=== PATIENT | male | born 1945 | race Caucasian/White ===

== ENCOUNTER 2018-05-13 12:41 | Emergency (ER) | payer MEDICARE, MEDICAID ==
[~2018-05-13] VITALS: Ht 167.6 cm; Wt 73.5 kg
[~2018-05-13 12:41] MED LIST: BUSP15TA3 PO; CILO100T PO; FAMO40TA7 PO; LISI-600 PO; OXYC20TA71 PO
[2018-05-13] MEDS ORDERED: normal saline 1000ML IV soln IV ONE (12:50)
[2018-05-13 13:15] LABS: BASOPHILS % (AUTO) 0.5 % (0-1); EOSINOPHILS # (AUTO) 0.2 X10'3 (0-0.9); HEMATOCRIT 41.8 % (42.0-52.0); HEMOGLOBIN 14.3 g/dl (14.0-17.9); LYMPHOCYTES # (AUTO) 1.2 X10'3 (1.1-4.8); LYMPHOCYTES % (AUTO) 19.1 % (21-51); MEAN CORPUSCULAR HEMOGLOBIN 31.5 PG (27.0-31.0); MEAN CORPUSCULAR HGB CONC 34.2 % (33.0-36.5); MEAN CORPUSCULAR VOLUME 92.3 FL (78-98); MEAN PLATELET VOLUME 9.4 FL (7.4-10.4); MONOCYTES # (AUTO) 0.3 X10'3 (0-0.9); MONOCYTES % (AUTO) 5.4 % (2-12); NEUTROPHILS # (AUTO) 4.6 X10'3 (1.8-7.7); PLATELET COUNT 184 X10'3 (140-440); RED BLOOD COUNT 4.53 X10'6 (4.70-6.10); RED CELL DISTRIBUTION WIDTH 12.4 % (11.5-14.5); WHITE BLOOD COUNT 6.3 X10'3 (4.5-11.0)
[2018-05-13 13:26] LABS: ALANINE AMINOTRANSFERASE 23 U/L (12-78); ALBUMIN 3.3 G/DL (3.4-5.0); ALKALINE PHOSPHATASE 74 IU/L (46-116); ANION GAP 10 (8-16); ASPARTATE AMINO TRANSFERASE 18 U/L (10-37); BILIRUBIN,TOTAL 0.4 MG/DL (0.1-1.0); BLOOD UREA NITROGEN 21 MG/DL (7-18); BUN/CREATININE RATIO 19.6 (5.4-32.0); CHLORIDE 103 MMOL/L (99-107); CREATININE 1.07 MG/DL (0.60-1.10); GLUCOSE 182 MG/DL (70-104); POTASSIUM 3.6 MMOL/L (3.5-5.1); SODIUM 137 MMOL/L (135-145); TOTAL CARBON DIOXIDE 24.4 MMOL/L (24-32); TOTAL PROTEIN 6.7 G/DL (6.4-8.2); eGFR 68 ML/MIN
[2018-05-13 14:03] VITALS: BP 195/80
== END 2018-05-13 14:04 | disposition home or self-care (01) ==
LOC: ER 12:42
DX: T40.1X1A Poisoning by heroin, accidental (unintentional), initial encounter (principal); I10 Essential (primary) hypertension; J44.9 Chronic obstructive pulmonary disease, unspecified; F17.200 Nicotine dependence, unspecified, uncomplicated; F15.90 Other stimulant use, unspecified, uncomplicated; Y92.89 Other specified places as the place of occurrence of the external cause
CPT/HCPCS: 36415; 80053; 85025; 93005; 96360; 99285; J7030

== ENCOUNTER 2019-04-12 12:16 | Emergency (ER) | payer MEDICARE, MEDICAID ==
[~2019-04-12] VITALS: Ht 167.6 cm; Wt 66.4 kg
[2019-04-12] MEDS ORDERED: normal saline 1000ML IV soln IVB ONE ×2 (12:25→13:15)
[2019-04-12 13:07] LABS: BASOPHILS % (AUTO) 0.6 % (0-1); EOSINOPHILS # (AUTO) 0.2 X10'3 (0-0.9); HEMATOCRIT 41.3 % (42.0-52.0); HEMOGLOBIN 13.8 g/dl (14.0-17.9); LYMPHOCYTES # (AUTO) 1.6 X10'3 (1.1-4.8); LYMPHOCYTES % (AUTO) 21.7 % (21-51); MEAN CORPUSCULAR HEMOGLOBIN 29.9 PG (27.0-31.0); MEAN CORPUSCULAR HGB CONC 33.4 g/dL (33.0-36.5); MEAN CORPUSCULAR VOLUME 89.5 FL (78-98); MEAN PLATELET VOLUME 8.9 FL (7.4-10.4); MONOCYTES # (AUTO) 0.7 X10'3 (0-0.9); MONOCYTES % (AUTO) 9.1 % (2-12); NEUTROPHILS # (AUTO) 4.7 X10'3 (1.8-7.7); NEUTROPHILS % (AUTO) 65.6 % (42-75); PLATELET COUNT 239 X10'3 (140-440); RED BLOOD COUNT 4.61 X10'6 (4.70-6.10); RED CELL DISTRIBUTION WIDTH 15.4 % (11.5-14.5); WHITE BLOOD COUNT 7.2 X10'3 (4.5-11.0)
--- NOTE | 2019-04-12 13:16 | NUR ---
REMOVE PTS CLOTHES AND PLACE PT IN GOWN. PT TAKEN TO CT VIA GURNEY BY MINGO.
[2019-04-12 13:21] LABS: ALANINE AMINOTRANSFERASE 30 U/L (12-78); ALBUMIN 3.6 G/DL (3.4-5.0); ALBUMIN/GLOBULIN RATIO 0.9 (1.1-1.5); ALKALINE PHOSPHATASE 85 IU/L (46-116); ANION GAP 10 (8-16); ASPARTATE AMINO TRANSFERASE 20 U/L (10-37); BILIRUBIN,TOTAL 0.9 MG/DL (0.1-1.0); BLOOD UREA NITROGEN 18 MG/DL (7-18); CALCIUM 9.2 MG/DL (8.5-10.1); CHLORIDE 107 MMOL/L (99-107); GLUCOSE 86 MG/DL (70-104); POTASSIUM 3.4 MMOL/L (3.5-5.1); SODIUM 142 MMOL/L (135-145); TOTAL PROTEIN 7.6 G/DL (6.4-8.2); eGFR 82 ML/MIN
[2019-04-12 13:24] LABS: TROPONIN I < 0.04 NG/ML (0.0-0.05)
[2019-04-12 13:39] LABS: ETHANOL < 0.010 GM/DL (0.0-0.010)
[2019-04-12 13:57] VITALS: BP 152/80
[2019-04-12 14:08] LABS: CLARITY,URINE CLEAR (Clear); COLOR,URINE YELLOW (Yellow); GLUCOSE, URINE NEGATIVE (Neg); KETONES,URINE 15 mg/dl (Neg); LEUKOCYTE ESTERASE ,URINE NEGATIVE (Neg); NITRITES, URINE NEGATIVE (Neg); OCCULT BLOOD,URINE LARGE (Neg); PH,URINE 5.5 (4.8-8.0); PROTEIN,URINE TRACE mg/dl (Neg)
[2019-04-12 14:14] LABS: URINE AMPHETAMINE SCREEN POSITIVE (Neg); URINE BARBITUATE SCREEN NEGATIVE (Neg); URINE BENZODIAZEPINES SCREEN POSITIVE (Neg); URINE CANNABINOID SCREEN POSITIVE (Neg); URINE COCAINE SCREEN NEGATIVE (Neg); URINE METHADONE SCREEN NEGATIVE (Neg); URINE OPIATE SCREEN POSITIVE (Neg); URINE PHENCYCLIDINE SCREEN NEGATIVE (Neg)
[2019-04-12 14:20] LABS: UA COLLECTION TYPE STRAIGHT CATH
[2019-04-12 14:21] LABS: WBC,URINE 0-4 /HPF (0-4)
[2019-04-12 14:22] LABS: BACTERIA,URINE NONE SEEN /HPF (Neg); MUCUS STRANDS FEW /LPF (Neg); RBC,URINE 20-50 /HPF (0-2); SQUAMOUS EPITHELIAL CELL,UR FEW /LPF (FEW)
--- NOTE | 2019-04-12 14:45 | NUR ---
called [facility] [phone], per domenic pt ok to go to the [facility], carlos howe tech getting pt sack lunch from dietary, pt wearing appropriate clothes
--- NOTE | 2019-04-12 14:58 | NUR ---
BS 79, PT BEING GIVEN A SACK LUNCH. REMOVE TWO NEEDLES FROM PT'S RIGHT LEG. NOTIFY DR JIMENEZ.
== END 2019-04-12 16:03 | disposition home or self-care (01) ==
LOC: ER 12:17
DX: R41.82 Altered mental status, unspecified (principal); F19.10 Other psychoactive substance abuse, uncomplicated; I10 Essential (primary) hypertension; J44.9 Chronic obstructive pulmonary disease, unspecified; F41.9 Anxiety disorder, unspecified; F15.90 Other stimulant use, unspecified, uncomplicated; F11.90 Opioid use, unspecified, uncomplicated; F10.99 Alcohol use, unspecified with unspecified alcohol-induced disorder; Z86.19 Personal history of other infectious and parasitic diseases; Z98.890 Other specified postprocedural states; Y90.9 Presence of alcohol in blood, level not specified
CPT/HCPCS: 36415; 70450; 71045; 80053; 80305; 80320; 81001; 82140; 82948; 84484; 85025; 93005; 96360; 96361; 99284; J7030; P9612

== ENCOUNTER 2019-05-20 15:47 | Emergency (ER) | payer MEDICARE, MEDICAID ==
[~2019-05-20] VITALS: Ht 167.6 cm; Wt 72.7 kg
[~2019-05-20 15:47] MED LIST changes: +LIDOcaine 1% W/epiNEPHrine 1:100,000 20ml vial ONE
[2019-05-20 16:11] VITALS: BP 108/66
== END 2019-05-20 19:49 | disposition home or self-care (01) ==
LOC: ER 15:48
DX: S01.111A Laceration without foreign body of right eyelid and periocular area, initial encounter (principal); S60.311A Abrasion of right thumb, initial encounter; M54.2 Cervicalgia; I10 Essential (primary) hypertension; J44.9 Chronic obstructive pulmonary disease, unspecified; F41.9 Anxiety disorder, unspecified; F15.90 Other stimulant use, unspecified, uncomplicated; F11.90 Opioid use, unspecified, uncomplicated; Z98.890 Other specified postprocedural states; Z79.899 Other long term (current) drug therapy; W18.39XA Other fall on same level, initial encounter; Y93.89 Activity, other specified; Y92.89 Other specified places as the place of occurrence of the external cause; Y99.8 Other external cause status
CPT/HCPCS: 12013; 70450; 72125; 73120; 99284

== ENCOUNTER 2019-07-01 14:13 | Inpatient (IN) | payer MEDICARE, MEDICAID ==
[~2019-07-01] VITALS: Ht 167.6 cm; Wt 68.0 kg
[~2019-07-01 14:13] MED LIST changes: -LIDOcaine 1% W/epiNEPHrine 1:100,000 20ml vial ONE
[2019-07-01] MEDS ORDERED: normal saline 1000ML IV soln IVB ONE (14:45)
[2019-07-01 15:26] LABS: BASOPHILS # (AUTO) 0.1 X10'3 (0-0.2); BASOPHILS % (AUTO) 1.5 % (0-1); EOSINOPHILS # (AUTO) 0.3 X10'3 (0-0.9); EOSINOPHILS % (AUTO) 4.1 % (0-6); HEMATOCRIT 43.1 % (42.0-52.0); HEMOGLOBIN 14.5 g/dl (14.0-17.9); LYMPHOCYTES # (AUTO) 3.2 X10'3 (1.1-4.8); LYMPHOCYTES % (AUTO) 41.9 % (21-51); MEAN CORPUSCULAR HEMOGLOBIN 30.3 PG (27.0-31.0); MEAN CORPUSCULAR HGB CONC 33.7 g/dL (33.0-36.5); MEAN CORPUSCULAR VOLUME 89.8 FL (78-98); MEAN PLATELET VOLUME 9.6 FL (7.4-10.4); MONOCYTES % (AUTO) 12.4 % (2-12); NEUTROPHILS # (AUTO) 3.1 X10'3 (1.8-7.7); NEUTROPHILS % (AUTO) 40.1 % (42-75); PLATELET COUNT 154 X10'3 (140-440); RED BLOOD COUNT 4.79 X10'6 (4.70-6.10); RED CELL DISTRIBUTION WIDTH 14.5 % (11.5-14.5); WHITE BLOOD COUNT 7.6 X10'3 (4.5-11.0)
--- NOTE | 2019-07-01 15:35 | NUR ---
PT OUT TO CT VIA WHEELCHAIR WITH FEATHER CURLING MACHINE OPERATOR
[2019-07-01 15:54] LABS: ALBUMIN 2.9 G/DL (3.4-5.0); ALKALINE PHOSPHATASE 320 IU/L (46-116); ANION GAP 9 (8-16); ASPARTATE AMINO TRANSFERASE 809 U/L (10-37); BILIRUBIN,TOTAL 3.9 MG/DL (0.1-1.0); BLOOD UREA NITROGEN 13 MG/DL (7-18); BUN/CREATININE RATIO 15.7 (5.4-32.0); CALCIUM 8.9 MG/DL (8.5-10.1); CHLORIDE 107 MMOL/L (99-107); CREATININE 0.83 MG/DL (0.60-1.10); ETHANOL < 0.010 GM/DL (0.0-0.010); GLUCOSE 114 MG/DL (70-104); SODIUM 143 MMOL/L (135-145); TOTAL CARBON DIOXIDE 26.8 MMOL/L (24-32); TROPONIN I < 0.04 NG/ML (0.0-0.05); eGFR 90 ML/MIN
[2019-07-01 15:55] LABS: ALANINE AMINOTRANSFERASE 2040 U/L (12-78); ALBUMIN/GLOBULIN RATIO 0.8 (1.1-1.5); TOTAL PROTEIN 6.7 G/DL (6.4-8.2)
[2019-07-01] MEDS ORDERED: lactulose 20gm/30ml cup PO ONE (16:10)
[2019-07-01] MEDS ORDERED: NO HOME MEDS (16:12)
[2019-07-01 16:28] LABS: CLARITY,URINE CLEAR (Clear); COLOR,URINE YELLOW (Yellow); GLUCOSE, URINE NEGATIVE (Neg); KETONES,URINE NEGATIVE (Neg); LEUKOCYTE ESTERASE ,URINE NEGATIVE (Neg); NITRITES, URINE NEGATIVE (Neg); OCCULT BLOOD,URINE SMALL (Neg); PROTEIN,URINE NEGATIVE (Neg); UROBILINOGEN,URINE 0.2 E.U/dL (0.2-1.0)
[2019-07-01 16:33] LABS: UA COLLECTION TYPE URINAL
[2019-07-01 16:35] LABS: BACTERIA,URINE NONE SEEN /HPF (Neg); MUCUS STRANDS NONE SEEN /LPF (Neg); RBC,URINE 0-2 /HPF (0-2); SQUAMOUS EPITHELIAL CELL,UR NONE SEEN /LPF (FEW); WBC,URINE NONE SEEN /HPF (0-4)
[2019-07-01 16:36] LABS: URINE AMPHETAMINE SCREEN NEGATIVE (Neg); URINE BARBITUATE SCREEN NEGATIVE (Neg); URINE BENZODIAZEPINES SCREEN NEGATIVE (Neg); URINE CANNABINOID SCREEN NEGATIVE (Neg); URINE COCAINE SCREEN NEGATIVE (Neg); URINE METHADONE SCREEN NEGATIVE (Neg); URINE OPIATE SCREEN NEGATIVE (Neg); URINE PHENCYCLIDINE SCREEN NEGATIVE (Neg)
[2019-07-01] MEDS: normal saline 1000ml 1,000 ML IV SCH (16:36)
[2019-07-01] MEDS ORDERED: magnesium 2GM in 50ml NS 50 ML IV PRN (16:40)
[2019-07-01] MEDS ORDERED: magnesium Cl slow-release 64mg tablet PO PRN (16:40)
[2019-07-01] MEDS ORDERED: magnesium 4gm in 100ml NS 100 ML IV PRN (16:40)
[2019-07-01] MEDS ORDERED: diphenhydrAMINE 25mg capsule PO PRN (16:40)
[2019-07-01 17:37] LABS: ACETAMINOPHEN < 2.0 UG/ML (10-30)
--- NOTE | 2019-07-01 18:03 | NUR ---
Patient in room PCU 3024. I have received report from Lolly and had the opportunity to ask questions and assume patient care, obtained a set of vital signs, 2 RN skin check completed. 20g to RFA running NS @ 100 mL/HR. Oriented patient to new unit. Will report off to night shit.
[2019-07-01 18:07] VITALS: BP 133/78
--- NOTE | 2019-07-01 18:21 | NUR ---
Problems reprioritized. Patient report given, questions answered & plan of care reviewed with Tay.
--- NOTE | 2019-07-01 18:21 | NUR ---
Patient in room PCU 3026R. I have received report from KARMEN Lovett and had the opportunity to ask questions and assume patient care. Pt is alert and oriented x4, denies CP, SOB, dizziness, n/v, and rated pain 0/10
[2019-07-01 18:45] VITALS: BP 117/62
[2019-07-01 20:47] LABS: BILIRUBIN,DIRECT 2.8 MG/DL (0-0.3)
[2019-07-01 22:00] VITALS: BP 126/63
[2019-07-02] MEDS: normal saline 1000ml 1,000 ML IV SCH ×3 (02:42→17:49)
[2019-07-02 03:00] VITALS: BP 137/67
[2019-07-02 05:16] LABS: BASOPHILS # (AUTO) 0.1 X10'3 (0-0.2); BASOPHILS % (AUTO) 0.9 % (0-1); EOSINOPHILS # (AUTO) 0.4 X10'3 (0-0.9); EOSINOPHILS % (AUTO) 6.2 % (0-6); HEMATOCRIT 39.6 % (42.0-52.0); HEMOGLOBIN 13.5 g/dl (14.0-17.9); LYMPHOCYTES # (AUTO) 2.7 X10'3 (1.1-4.8); LYMPHOCYTES % (AUTO) 44.8 % (21-51); MEAN CORPUSCULAR HEMOGLOBIN 30.4 PG (27.0-31.0); MEAN CORPUSCULAR VOLUME 89.2 FL (78-98); MEAN PLATELET VOLUME 9.8 FL (7.4-10.4); MONOCYTES # (AUTO) 0.8 X10'3 (0-0.9); MONOCYTES % (AUTO) 13.9 % (2-12); NEUTROPHILS % (AUTO) 34.2 % (42-75); PLATELET COUNT 140 X10'3 (140-440); RED BLOOD COUNT 4.44 X10'6 (4.70-6.10); RED CELL DISTRIBUTION WIDTH 14.8 % (11.5-14.5)
[2019-07-02 05:26] LABS: ALBUMIN 2.5 G/DL (3.4-5.0); ANION GAP 11 (8-16); BLOOD UREA NITROGEN 10 MG/DL (7-18); BUN/CREATININE RATIO 12.7 (5.4-32.0); CALCIUM 8.3 MG/DL (8.5-10.1); CHLORIDE 110 MMOL/L (99-107); CHOLESTEROL 120 MG/DL (0-200); CREATININE 0.79 MG/DL (0.60-1.10); GLUCOSE 95 MG/DL (70-104); HDL CHOLESTEROL 15 MG/DL (35-60); LDL CHOLESTEROL 72 MG/DL (50-100); MAGNESIUM 1.7 MG/DL (1.5-2.4); POTASSIUM 3.7 MMOL/L (3.5-5.1); SODIUM 144 MMOL/L (135-145); TRIGLYCERIDES 145 MG/DL (20-135); eGFR > 90 ML/MIN
--- NOTE | 2019-07-02 06:29 | NUR ---
Patient in room PCU 3024. I have received report from Tay PERAZA and had the opportunity to ask questions and assume patient care.
--- NOTE | 2019-07-02 06:32 | NUR ---
Problems reprioritized. Patient report given, questions answered & plan of care reviewed with KARMEN Long. Pt stable at shift change
[2019-07-02 07:00] VITALS: BP 130/55
[2019-07-02 08:18] LABS: ALBUMIN/GLOBULIN RATIO 0.7 (1.1-1.5); ALKALINE PHOSPHATASE 271 IU/L (46-116); ASPARTATE AMINO TRANSFERASE 587 U/L (10-37); BILIRUBIN,TOTAL 2.9 MG/DL (0.1-1.0); TOTAL PROTEIN 5.9 G/DL (6.4-8.2)
[2019-07-02 08:21] LABS: ALANINE AMINOTRANSFERASE 1573 U/L (12-78)
[2019-07-02 11:00] VITALS: BP 148/70
--- NOTE | 2019-07-02 12:40 | NUR ---
Spoke with sister Sara on the phone after getting permision from the patient. Sister said the last place he stayed was with someone named Shola at [phone]. She said he cannot come to her home at this time and is hoping that secondary social studies teacher can help him find a place to stay.
[2019-07-02 15:00] VITALS: BP 116/91
--- NOTE | 2019-07-02 18:08 | NUR ---
Problems reprioritized. Patient report given, questions answered & plan of care reviewed with Tay PERAZA.
[2019-07-02 19:00] VITALS: BP 117/53
[2019-07-02 23:00] VITALS: BP 128/65
[2019-07-03] MEDS: normal saline 1000ml 1,000 ML IV SCH (02:41)
[2019-07-03 03:00] VITALS: BP 140/66
--- NOTE | 2019-07-03 03:01 | NUR ---
PAGER ID: [phone] MESSAGE: Leann Venegas; Room # 0216G Pt pulled IV, refused treatment, and wants to leave. Aisha- Tay
--- NOTE | 2019-07-03 03:05 | NUR ---
Patient refused to sign the AMA, but wants to stay now without a new IV. Patient is being administered NS @ 100ml. Per Dr. Ram , patient can stay w/o IV, but a decision has to be made tomorrow morning.
--- NOTE | 2019-07-03 05:02 | NUR ---
Patient refused morning labs
[2019-07-03 06:00] VITALS: BP 139/61
--- NOTE | 2019-07-03 06:29 | NUR ---
Problems reprioritized. Patient report given, questions answered & plan of care reviewed with KARMEN Mcgrath. Pt stable at shift change, but non-compliant
--- NOTE | 2019-07-03 08:05 | NUR ---
PAGER ID: [phone] MESSAGE: [id number] Mike Venegas is leaving THEODORE Mcgrath RN Ext [phone]
--- NOTE | 2019-07-03 08:12 | NUR ---
Explained to patient he is not medically clear to leave without going AMA, patient states he still wants to leave.
[2019-07-04 07:17] LABS: HBSAG SCREEN Negative (Negative); HEP A AB, IGM Negative (Negative); HEP B CORE AB, IGM Negative (Negative); HEPATITIS C ANTIBODY >11.0 s/co ratio (0.0-0.9)
== END 2019-07-03 07:45 | disposition left against medical advice (07) | DRG 441 ==
LOC: ER 14:13 → ED HOLD 16:36 → PCU 3S 17:50
PROVIDERS: ADMIT Internal Medicine; ATTEND Internal Medicine
DX: B17.9 Acute viral hepatitis, unspecified (principal); K72.00 Acute and subacute hepatic failure without coma; G93.41 Metabolic encephalopathy; K70.30 Alcoholic cirrhosis of liver without ascites; B18.2 Chronic viral hepatitis C; F10.10 Alcohol abuse, uncomplicated; F17.210 Nicotine dependence, cigarettes, uncomplicated; Z53.29 Procedure and treatment not carried out because of patient's decision for other reasons; F11.90 Opioid use, unspecified, uncomplicated; F15.90 Other stimulant use, unspecified, uncomplicated; F41.9 Anxiety disorder, unspecified; R55 Syncope and collapse; I10 Essential (primary) hypertension; J44.9 Chronic obstructive pulmonary disease, unspecified; Z59.0 Homelessness; Z89.511 Acquired absence of right leg below knee; Z71.51 Drug abuse counseling and surveillance of drug abuser
CPT/HCPCS: 36415; 70450; 71045; 76700; 80048; 80053; 80061; 80076; 80305; 80320; 80329; 81001; 82140; 82248; 83735; 84484; 85025; 85610; 86705; 86706; 86709; 86803; 87081; 87340; 93005; 96360; 99285; G0378; J7030; Q0163

== ENCOUNTER 2019-10-23 16:26 | Inpatient (IN) | payer MEDICARE, MEDICAID ==
[~2019-10-23] VITALS: Ht 167.6 cm; Wt 71.4 kg
[~2019-10-23 16:26] MED LIST changes: -BUSP15TA3 PO; -CILO100T PO; -FAMO40TA7 PO; -LISI-600 PO; +NO HOME MEDS; -OXYC20TA71 PO
[2019-10-23] MEDS ORDERED: normal saline 1000ML IV soln IVB ONE (16:30)
[2019-10-23] MEDS ORDERED: normal saline 1000ml 1,000 ML IV ONE (16:35)
[2019-10-23] MEDS ORDERED: bacitracin 15gm ointment TP ONE (16:50)
[2019-10-23] MEDS ORDERED: TETanus/Pertussis (Acell)/Diphther VAC/PF (Tdap-Adult) 0.5ml syringe IMVAC ONE (16:50)
[2019-10-23] MEDS ORDERED: LORazepam 2 mg/ml vial IV ONE ×3 (16:50→21:00)
[2019-10-23 17:01] LABS: BASOPHILS % (AUTO) 0.4 % (0-1); EOSINOPHILS # (AUTO) 0.3 X10'3 (0-0.9); EOSINOPHILS % (AUTO) 3.5 % (0-6); HEMATOCRIT 42.2 % (42.0-52.0); HEMOGLOBIN 14.3 g/dl (14.0-17.9); LYMPHOCYTES # (AUTO) 2.9 X10'3 (1.1-4.8); LYMPHOCYTES % (AUTO) 38.9 % (21-51); MEAN CORPUSCULAR HEMOGLOBIN 30.6 PG (27.0-31.0); MEAN CORPUSCULAR VOLUME 89.9 FL (78-98); MEAN PLATELET VOLUME 8.6 FL (7.4-10.4); MONOCYTES # (AUTO) 0.7 X10'3 (0-0.9); MONOCYTES % (AUTO) 9.5 % (2-12); NEUTROPHILS # (AUTO) 3.6 X10'3 (1.8-7.7); NEUTROPHILS % (AUTO) 47.7 % (42-75); PLATELET COUNT 193 X10'3 (140-440); RED BLOOD COUNT 4.69 X10'6 (4.70-6.10); RED CELL DISTRIBUTION WIDTH 13.1 % (11.5-14.5); WHITE BLOOD COUNT 7.5 X10'3 (4.5-11.0)
[2019-10-23 17:08] LABS: CLARITY,URINE CLEAR (Clear); COLOR,URINE YELLOW (Yellow); GLUCOSE, URINE NEGATIVE (Neg); KETONES,URINE NEGATIVE (Neg); LEUKOCYTE ESTERASE ,URINE NEGATIVE (Neg); NITRITES, URINE NEGATIVE (Neg); OCCULT BLOOD,URINE TRACE-INTACT (Neg); PROTEIN,URINE NEGATIVE (Neg); UROBILINOGEN,URINE 0.2 E.U/dL (0.2-1.0)
[2019-10-23 17:16] LABS: UA COLLECTION TYPE CLN CATCH MIDSTREAM
[2019-10-23 17:17] LABS: BACTERIA,URINE NONE SEEN /HPF (Neg); MUCUS STRANDS NONE SEEN /LPF (Neg); RBC,URINE 0-2 /HPF (0-2); SQUAMOUS EPITHELIAL CELL,UR NONE SEEN /LPF (FEW); WBC,URINE NONE SEEN /HPF (0-4)
[2019-10-23 17:19] LABS: ALANINE AMINOTRANSFERASE 25 U/L (12-78); ALBUMIN 3.6 G/DL (3.4-5.0); ALBUMIN/GLOBULIN RATIO 1.1 (1.1-1.5); ALKALINE PHOSPHATASE 70 IU/L (46-116); ANION GAP 9 (8-16); ASPARTATE AMINO TRANSFERASE 19 U/L (10-37); BILIRUBIN,TOTAL 0.3 MG/DL (0.1-1.0); BLOOD UREA NITROGEN 17 MG/DL (7-18); BUN/CREATININE RATIO 17.2 (5.4-32.0); CALCIUM 8.5 MG/DL (8.5-10.1); CHLORIDE 109 MMOL/L (99-107); CREATININE 0.99 MG/DL (0.60-1.10); GLUCOSE 96 MG/DL (70-104); POTASSIUM 3.8 MMOL/L (3.5-5.1); SODIUM 142 MMOL/L (135-145); TOTAL CARBON DIOXIDE 24.1 MMOL/L (24-32); eGFR 74 ML/MIN
[2019-10-23 17:22] LABS: TROPONIN I < 0.04 NG/ML (0.0-0.05)
[2019-10-23 17:28] LABS: URINE AMPHETAMINE SCREEN NEGATIVE (Neg); URINE BARBITUATE SCREEN NEGATIVE (Neg); URINE BENZODIAZEPINES SCREEN NEGATIVE (Neg); URINE CANNABINOID SCREEN POSITIVE (Neg); URINE COCAINE SCREEN NEGATIVE (Neg); URINE METHADONE SCREEN NEGATIVE (Neg); URINE OPIATE SCREEN NEGATIVE (Neg); URINE PHENCYCLIDINE SCREEN NEGATIVE (Neg)
[2019-10-23] MEDS ORDERED: LIDOcaine/epinephrine/tetracaine TOPICAL sol 3 ML syringe TOP ONE (18:00)
--- NOTE | 2019-10-23 18:59 | NUR ---
The patient is constantly trying to get out of bed and not able to follow instructions. He does have an elevated alcohol level in his blood. We have tried to talk to him, to instruct him, a sitter was in the room. It has become dangerous for his safety and there is such a great concern about him getting hurt r/t this activity and lack of comprehension. The MD was made aware and restraints were placed. Initially we tried the soft foam restraints, however, he busted those so now the hard restraints were placed on his wrists.
[2019-10-23] MEDS ORDERED: diphenhydrAMINE 50 mg/ml inj IV ONE (19:00)
[2019-10-23] MEDS ORDERED: haloperidol lactate 5mg/ml inj IM ONE (19:00)
[2019-10-23] MEDS ORDERED: chlordiazePOXIDE 25mg capsule PO ONE (19:00)
--- NOTE | 2019-10-23 21:40 | NUR ---
pt is being placed into soft restraints and see if these work. aware.
[2019-10-24] VITALS (17 sets, daily range): BP systolic 108–165; BP diastolic 42–87
[2019-10-24] MEDS ORDERED: sodium phosphate inj. 15 MMOL in dextrose 5%-water 250 ML IV PRN (00:50)
[2019-10-24] MEDS ORDERED: sodium phosphate inj. 30 MMOL in dextrose 5%-water 250 ML IV PRN (00:50)
[2019-10-24] MEDS ORDERED: magnesium Cl slow-release 64mg tablet PO PRN (00:50)
[2019-10-24] MEDS ORDERED: ondansetron/PF 4mg/2ml inj IV PRN (00:50)
[2019-10-24] MEDS ORDERED: thiamine inj. 100 MG in normal saline 100ml IV soln 100 ML IV ONE (00:50)
[2019-10-24] MEDS ORDERED: potassium Cl 20 mEq SR tablet PO PRN ×2 (00:50)
[2019-10-24] MEDS ORDERED: potassium CL 10mEq/100ml bag 100 ML IV PRN (00:50)
[2019-10-24] MEDS ORDERED: magnesium 2GM in 50ml NS 50 ML IV PRN (00:50)
[2019-10-24] MEDS ORDERED: haloperidol 5mg tablet PO PRN (00:50)
[2019-10-24] MEDS ORDERED: Neutra Phos packet PO PRN (00:50)
[2019-10-24] MEDS ORDERED: acetaminophen 325mg tablet PO PRN ×2 (00:50)
[2019-10-24] MEDS ORDERED: magnesium hydroxide 30ml (MOM) UD suspension PO PRN (00:50)
[2019-10-24] MEDS ORDERED: haloperidol lactate 5mg/ml inj IM PRN (00:50)
[2019-10-24] MEDS ORDERED: magnesium 4gm in 100ml NS 100 ML IV PRN (00:50)
[2019-10-24] MEDS ORDERED: LORazepam 2 mg/ml vial IV PRN (00:50)
[2019-10-24] MEDS ORDERED: thiamine 100mg/ml 2ml inj. IV ONE (01:10)
[2019-10-24] MEDS: normal saline 1000ml 1,000 ML IV SCH ×2 (01:22→13:52)
[2019-10-24] MEDS: dexmedetomidin/NS 400mcg/100ml 100 ML IV SCH ×2 (03:15→14:10)
[2019-10-24 08:42] LABS: ALANINE AMINOTRANSFERASE 22 U/L (12-78); ALBUMIN 3.3 G/DL (3.4-5.0); ALBUMIN/GLOBULIN RATIO 0.9 (1.1-1.5); ALKALINE PHOSPHATASE 79 IU/L (46-116); AMYLASE 39 U/L (25-115); ANION GAP 7 (8-16); ASPARTATE AMINO TRANSFERASE 25 U/L (10-37); BILIRUBIN,TOTAL 0.5 MG/DL (0.1-1.0); BLOOD UREA NITROGEN 13 MG/DL (7-18); BUN/CREATININE RATIO 14.4 (5.4-32.0); CALCIUM 8.3 MG/DL (8.5-10.1); CHLORIDE 111 MMOL/L (99-107); GLUCOSE 88 MG/DL (70-104); LIPASE 54 U/L (73-393); MAGNESIUM 1.7 MG/DL (1.5-2.4); POTASSIUM 3.7 MMOL/L (3.5-5.1); SODIUM 146 MMOL/L (135-145); TOTAL CARBON DIOXIDE 28.1 MMOL/L (24-32); TOTAL PROTEIN 6.8 G/DL (6.4-8.2); eGFR 82 ML/MIN
[2019-10-24 09:21] LABS: BASOPHILS % (AUTO) 0.6 % (0-1); EOSINOPHILS # (AUTO) 0.3 X10'3 (0-0.9); EOSINOPHILS % (AUTO) 4.3 % (0-6); HEMATOCRIT 42.8 % (42.0-52.0); HEMOGLOBIN 14.8 g/dl (14.0-17.9); LYMPHOCYTES # (AUTO) 1.4 X10'3 (1.1-4.8); LYMPHOCYTES % (AUTO) 18.4 % (21-51); MEAN CORPUSCULAR HGB CONC 34.5 g/dL (33.0-36.5); MEAN CORPUSCULAR VOLUME 89.7 FL (78-98); MEAN PLATELET VOLUME 8.5 FL (7.4-10.4); MONOCYTES # (AUTO) 0.7 X10'3 (0-0.9); MONOCYTES % (AUTO) 8.7 % (2-12); NEUTROPHILS # (AUTO) 5.2 X10'3 (1.8-7.7); PLATELET COUNT 178 X10'3 (140-440); RED BLOOD COUNT 4.77 X10'6 (4.70-6.10); RED CELL DISTRIBUTION WIDTH 12.9 % (11.5-14.5); WHITE BLOOD COUNT 7.7 X10'3 (4.5-11.0)
[2019-10-24 09:32] LABS: PARTIAL THROMBOPLASTIN TIME 25 SECONDS (22-32)
[2019-10-24] MEDS: pantoprazole 40 MG vial IV SCH (09:34)
[2019-10-24] MEDS: enoxaparin 40mg/0.4ml syringe SUBCUT SCH (09:35)
--- NOTE | 2019-10-24 12:37 | NUR ---
Pt having what appears to be intermittent PVCs and [id number]. Dr. Bae, shipping track supervisor Annie Aguayo, and Ashley Almeida TOOL DESIGN DRAFTSPERSON made aware. No further intervention ordered.
[2019-10-24] MEDS: MVI, adult No.4 with vit. K 10 ML in dextrose 5% water 500ml 500 ML IV SCH ×2 (13:22)
[2019-10-24] MEDS: folic acid 1mg/0.2ml inj IV SCH (15:10)
--- NOTE | 2019-10-24 18:43 | NUR ---
Patient in room CICU 2006. I have received report from Ирина Rutherford RN and had the opportunity to ask questions and assume patient care.
[2019-10-24] MEDS: thiamine inj. 100 MG in normal saline 100ml IV soln 100 ML IV SCH (20:13)
[2019-10-25] VITALS (17 sets, daily range): BP systolic 102–153; BP diastolic 43–81
[2019-10-25] MEDS: normal saline 1000ml 1,000 ML IV SCH ×2 (03:28→16:48)
[2019-10-25 05:43] LABS: BASOPHILS % (AUTO) 0.5 % (0-1); EOSINOPHILS # (AUTO) 0.4 X10'3 (0-0.9); HEMATOCRIT 39.9 % (42.0-52.0); HEMOGLOBIN 13.7 g/dl (14.0-17.9); LYMPHOCYTES # (AUTO) 1.5 X10'3 (1.1-4.8); LYMPHOCYTES % (AUTO) 21.2 % (21-51); MEAN CORPUSCULAR HEMOGLOBIN 30.9 PG (27.0-31.0); MEAN CORPUSCULAR HGB CONC 34.3 g/dL (33.0-36.5); MEAN PLATELET VOLUME 9.1 FL (7.4-10.4); MONOCYTES # (AUTO) 0.7 X10'3 (0-0.9); MONOCYTES % (AUTO) 9.7 % (2-12); NEUTROPHILS # (AUTO) 4.6 X10'3 (1.8-7.7); NEUTROPHILS % (AUTO) 63.6 % (42-75); PLATELET COUNT 163 X10'3 (140-440); RED BLOOD COUNT 4.43 X10'6 (4.70-6.10); RED CELL DISTRIBUTION WIDTH 13.1 % (11.5-14.5); WHITE BLOOD COUNT 7.2 X10'3 (4.5-11.0)
[2019-10-25 05:52] LABS: PARTIAL THROMBOPLASTIN TIME 26 SECONDS (22-32)
[2019-10-25 05:57] LABS: ALANINE AMINOTRANSFERASE 25 U/L (12-78); ALBUMIN 2.9 G/DL (3.4-5.0); ALBUMIN/GLOBULIN RATIO 0.9 (1.1-1.5); ALKALINE PHOSPHATASE 71 IU/L (46-116); AMYLASE 37 U/L (25-115); ANION GAP 6 (8-16); ASPARTATE AMINO TRANSFERASE 27 U/L (10-37); BILIRUBIN,TOTAL 0.6 MG/DL (0.1-1.0); BLOOD UREA NITROGEN 15 MG/DL (7-18); BUN/CREATININE RATIO 18.1 (5.4-32.0); CALCIUM 7.9 MG/DL (8.5-10.1); CHLORIDE 109 MMOL/L (99-107); CREATININE 0.83 MG/DL (0.60-1.10); GLUCOSE 86 MG/DL (70-104); LIPASE 62 U/L (73-393); MAGNESIUM 1.7 MG/DL (1.5-2.4); PHOSPHORUS 2.7 MG/DL (2.3-4.5); POTASSIUM 3.6 MMOL/L (3.5-5.1); SODIUM 141 MMOL/L (135-145); TOTAL PROTEIN 6.1 G/DL (6.4-8.2); eGFR 90 ML/MIN
--- NOTE | 2019-10-25 06:44 | NUR ---
Problems reprioritized. Patient report given, questions answered & plan of care reviewed with KARMEN Long.
--- NOTE | 2019-10-25 06:45 | NUR ---
Patient in room CICU 2006. I have received report from Ирина PERAZA and had the opportunity to ask questions and assume patient care. Patient resting in bed at this time, DNR band applied, patient offers no complaints, unlabored respirations, will continue to monitor.
[2019-10-25] MEDS: enoxaparin 40mg/0.4ml syringe SUBCUT SCH (07:41)
[2019-10-25] MEDS: pantoprazole 40 MG vial IV SCH (07:41)
--- NOTE | 2019-10-25 11:11 | NUR ---
PAGER ID: [phone] MESSAGE: DR. THIBODEAUX, [id number]/MILKA C/O CONSTIPATION. LAST BM 10-20. REQUESTING BOWEL CARE PLEASE.PROBABLY CAUSING THE ABD PAIN. PAOLA [phone] Addendum: 10/25/19 at 1111 by Vic Ortiz RN WRONG PATIENT. DISREGARD
[2019-10-25] MEDS: folic acid 1mg/0.2ml inj IV SCH (11:54)
[2019-10-25] MEDS: MVI, adult No.4 with vit. K 10 ML in dextrose 5% water 500ml 500 ML IV SCH ×2 (11:55)
--- NOTE | 2019-10-25 14:04 | NUR ---
RECEIVED REPORT VIA TELEPHONE FROM ANIA DAVENPORT RN
--- NOTE | 2019-10-25 14:41 | NUR ---
Problems reprioritized. Patient report given, questions answered & plan of care reviewed with Lars RN. Patient stable for transfer of care. Wheeled up on wheel chair, on telemetry, PIV intact and running, on RA with no issues, all belongings at bedside on PCU including scooter and prostetic leg.
--- NOTE | 2019-10-25 15:30 | NUR ---
RECEIVED FROM [facility] VIA . AGREE WITH PRIOR ASSESSMENT. VS STABLE.
--- NOTE | 2019-10-25 16:36 | NUR ---
REPORT GIVEN TO ANIA Piña, TO ASSUME CARE.
--- NOTE | 2019-10-25 18:34 | NUR ---
Problems reprioritized. Patient report given, questions answered & plan of care reviewed with KARMEN Walden.
--- NOTE | 2019-10-25 18:35 | NUR ---
Patient in room PCU 3027. I have received report from KARMEN Long and had the opportunity to ask questions and assume patient care.
[2019-10-25] MEDS ORDERED: GABA-532 PO (19:49)
[2019-10-25] MEDS: gabapentin 300mg capsule PO SCH (20:47)
[2019-10-25] MEDS: thiamine inj. 100 MG in normal saline 100ml IV soln 100 ML IV SCH (20:47)
[2019-10-26] MEDS ORDERED: LORazepam 1 MG tablet PO PRN (00:50)
[2019-10-26] MEDS ORDERED: LORazepam 2 mg/ml vial IV PRN (00:50)
[2019-10-26 02:00] VITALS: BP 141/64
[2019-10-26] MEDS: normal saline 1000ml 1,000 ML IV SCH (03:37)
[2019-10-26 05:47] LABS: ALANINE AMINOTRANSFERASE 32 U/L (12-78); ALBUMIN 2.9 G/DL (3.4-5.0); ALBUMIN/GLOBULIN RATIO 0.9 (1.1-1.5); ALKALINE PHOSPHATASE 73 IU/L (46-116); AMYLASE 36 U/L (25-115); ANION GAP 7 (8-16); ASPARTATE AMINO TRANSFERASE 29 U/L (10-37); BILIRUBIN,TOTAL 0.5 MG/DL (0.1-1.0); BLOOD UREA NITROGEN 9 MG/DL (7-18); BUN/CREATININE RATIO 10.1 (5.4-32.0); CALCIUM 7.9 MG/DL (8.5-10.1); CHLORIDE 109 MMOL/L (99-107); CREATININE 0.89 MG/DL (0.60-1.10); GLUCOSE 92 MG/DL (70-104); LIPASE 64 U/L (73-393); MAGNESIUM 1.7 MG/DL (1.5-2.4); PHOSPHORUS 2.9 MG/DL (2.3-4.5); POTASSIUM 3.7 MMOL/L (3.5-5.1); SODIUM 142 MMOL/L (135-145); TOTAL CARBON DIOXIDE 25.7 MMOL/L (24-32); eGFR 83 ML/MIN
[2019-10-26 05:56] LABS: BASOPHILS % (AUTO) 0.5 % (0-1); EOSINOPHILS # (AUTO) 0.4 X10'3 (0-0.9); EOSINOPHILS % (AUTO) 6.5 % (0-6); HEMATOCRIT 38.9 % (42.0-52.0); HEMOGLOBIN 13.4 g/dl (14.0-17.9); LYMPHOCYTES # (AUTO) 1.5 X10'3 (1.1-4.8); LYMPHOCYTES % (AUTO) 24.7 % (21-51); MEAN CORPUSCULAR HEMOGLOBIN 31.1 PG (27.0-31.0); MEAN CORPUSCULAR HGB CONC 34.5 g/dL (33.0-36.5); MEAN CORPUSCULAR VOLUME 90.3 FL (78-98); MEAN PLATELET VOLUME 8.9 FL (7.4-10.4); MONOCYTES # (AUTO) 0.7 X10'3 (0-0.9); MONOCYTES % (AUTO) 11.5 % (2-12); NEUTROPHILS # (AUTO) 3.4 X10'3 (1.8-7.7); NEUTROPHILS % (AUTO) 56.8 % (42-75); PLATELET COUNT 159 X10'3 (140-440); RED CELL DISTRIBUTION WIDTH 12.7 % (11.5-14.5)
[2019-10-26 06:00] VITALS: BP 128/64
--- NOTE | 2019-10-26 06:05 | NUR ---
Problems reprioritized. Patient report given, questions answered & plan of care reviewed with KARMEN Long.
[2019-10-26 06:11] LABS: PARTIAL THROMBOPLASTIN TIME 24 SECONDS (22-32)
[2019-10-26] MEDS: gabapentin 300mg capsule PO SCH (07:19)
[2019-10-26] MEDS: pantoprazole 40 MG vial IV SCH (07:19)
[2019-10-26] MEDS: enoxaparin 40mg/0.4ml syringe SUBCUT SCH (07:20)
[2019-10-26] MEDS ORDERED: multivitamins, therapeutics tablet PO SCH (08:00)
[2019-10-26] MEDS ORDERED: folic acid 1mg tablet PO SCH (08:00)
[2019-10-26] MEDS ORDERED: thiamine 100mg tablet PO SCH (08:00)
[2019-10-26] MEDS ORDERED: FOLI0.4T2 PO (10:35)
[2019-10-26] MEDS ORDERED: THIA50TA10 PO (10:35)
[2019-10-26] MEDS ORDERED: MULT-1179 PO (10:35)
--- NOTE | 2019-10-26 11:00 | NUR ---
Patient stable for discharge per MD order. patient discharge instructions given to patient, all questions and concerns addressed. New medications sent to [facility]. Patient declined follow up appointment. PIV d/c'd from left forearm, catheter intact. Tele monitor removed and retuned to telephone station installer. Patient wheel self off unit via motorized wheel chair.
--- NOTE | 2019-10-26 13:59 | NUR ---
Wound care consult received for wounds to face. Assessed prior to DC. Wounds stable with no signs of infection. Scabs forming over open areas. Recommend leaving open to air and pt can monitor from home.
[2019-10-28] MEDS ORDERED: LORazepam 1 MG tablet PO PRN (00:50)
[2019-10-28] MEDS ORDERED: LORazepam 2 mg/ml vial IV PRN (00:50)
== END 2019-10-26 11:00 | disposition home or self-care (01) | DRG 896 ==
LOC: ER 16:26 → ED HOLD 10-24 00:48 → CICU 2S 10-24 07:29 → PCU 3S 10-25 14:29
DX: F10.229 Alcohol dependence with intoxication, unspecified (principal); G93.41 Metabolic encephalopathy; F10.239 Alcohol dependence with withdrawal, unspecified; I10 Essential (primary) hypertension; J44.9 Chronic obstructive pulmonary disease, unspecified; S01.81XA Laceration without foreign body of other part of head, initial encounter; Z87.891 Personal history of nicotine dependence; Z89.511 Acquired absence of right leg below knee; B19.20 Unspecified viral hepatitis C without hepatic coma
CPT/HCPCS: 36415; 70450; 71045; 72125; 80053; 80305; 80320; 81001; 82140; 82150; 82948; 83605; 83690; 83735; 84100; 84145; 84484; 85025; 85610; 85730; 87040; 87081; 90715; 93005; 97161; 97530; C9113; G0378; J1200; J1630; J1650; J2060; J3411; J3490; J7030; J7060

== ENCOUNTER 2020-02-24 16:16 | Emergency (ER) | payer MEDICARE, MEDICAID ==
[~2020-02-24] VITALS: Ht 172.7 cm; Wt 77.3 kg
[~2020-02-24 16:16] MED LIST changes: +GABA-532 PO; +MULT-25 PO; -NO HOME MEDS; +THIA50TA10 PO
--- NOTE | 2020-02-24 16:34 | NUR ---
OFFICER LESLY IS HERE WITH PT.
[2020-02-24] MEDS ORDERED: normal saline 1000ML IV soln IVB ONE ×2 (16:50→18:00)
[2020-02-24] MEDS: cloNIDine 0.1 mg tablet PO STA ×2 (16:57→16:59)
[2020-02-24 17:40] LABS: BASOPHILS % (AUTO) 0.4 % (0-1); EOSINOPHILS # (AUTO) 0.2 X10'3 (0-0.9); EOSINOPHILS % (AUTO) 1.7 % (0-6); HEMATOCRIT 40.6 % (42.0-52.0); HEMOGLOBIN 13.4 g/dl (14.0-17.9); LYMPHOCYTES # (AUTO) 1.6 X10'3 (1.1-4.8); LYMPHOCYTES % (AUTO) 15.1 % (21-51); MEAN CORPUSCULAR HEMOGLOBIN 30.6 PG (27.0-31.0); MEAN CORPUSCULAR HGB CONC 33.1 g/dL (33.0-36.5); MEAN CORPUSCULAR VOLUME 92.4 FL (78-98); MEAN PLATELET VOLUME 8.6 FL (7.4-10.4); MONOCYTES # (AUTO) 1.1 X10'3 (0-0.9); MONOCYTES % (AUTO) 10.5 % (2-12); NEUTROPHILS # (AUTO) 7.9 X10'3 (1.8-7.7); NEUTROPHILS % (AUTO) 72.3 % (42-75); PLATELET COUNT 214 X10'3 (140-440); RED BLOOD COUNT 4.39 X10'6 (4.70-6.10); RED CELL DISTRIBUTION WIDTH 13.6 % (11.5-14.5); WHITE BLOOD COUNT 10.9 X10'3 (4.5-11.0)
[2020-02-24 18:03] LABS: ALANINE AMINOTRANSFERASE 26 U/L (12-78); ALBUMIN 3.4 G/DL (3.4-5.0); ALKALINE PHOSPHATASE 77 IU/L (46-116); ANION GAP 9 (8-16); ASPARTATE AMINO TRANSFERASE 20 U/L (10-37); BILIRUBIN,TOTAL 0.7 MG/DL (0.1-1.0); BLOOD UREA NITROGEN 23 MG/DL (7-18); BUN/CREATININE RATIO 20.2 (5.4-32.0); CALCIUM 8.4 MG/DL (8.5-10.1); CHLORIDE 108 MMOL/L (99-107); CREATININE 1.14 MG/DL (0.60-1.10); GLUCOSE 102 MG/DL (70-104); POTASSIUM 3.4 MMOL/L (3.5-5.1); SODIUM 142 MMOL/L (135-145); TOTAL PROTEIN 6.8 G/DL (6.4-8.2); eGFR 63 ML/MIN
--- NOTE | 2020-02-24 18:32 | NUR ---
PT IS MORE ALERT AND TALKING MORE. STATES HE IS FEELING BETTER.
[2020-02-24 19:15] VITALS: BP 167/94
== END 2020-02-24 19:15 | disposition home or self-care (01) ==
LOC: ER 16:16
DX: F10.129 Alcohol abuse with intoxication, unspecified (principal); F15.10 Other stimulant abuse, uncomplicated; I10 Essential (primary) hypertension; J44.9 Chronic obstructive pulmonary disease, unspecified; F41.9 Anxiety disorder, unspecified; F11.90 Opioid use, unspecified, uncomplicated; Z86.19 Personal history of other infectious and parasitic diseases; Z98.890 Other specified postprocedural states; Z72.89 Other problems related to lifestyle; Y90.9 Presence of alcohol in blood, level not specified
CPT/HCPCS: 36415; 80053; 83880; 84484; 85025; 85610; 93005; 99284; J7030

== ENCOUNTER 2020-10-18 08:09 | Day surgery (SDC) | payer MEDICARE, MEDICAID ==
[2020-10-11 12:26] LABS: BASOPHILS # (AUTO) 0.1 X10'3 (0-0.2); BASOPHILS % (AUTO) 0.6 % (0-1); EOSINOPHILS # (AUTO) 0.3 X10'3 (0-0.9); LYMPHOCYTES # (AUTO) 2.1 X10'3 (1.1-4.8); LYMPHOCYTES % (AUTO) 23.9 % (21-51); MEAN CORPUSCULAR HEMOGLOBIN 30.2 PG (27.0-31.0); MEAN CORPUSCULAR HGB CONC 33.3 g/dL (33.0-36.5); MEAN CORPUSCULAR VOLUME 90.6 FL (78-98); MEAN PLATELET VOLUME 8.3 FL (7.4-10.4); MONOCYTES # (AUTO) 0.8 X10'3 (0-0.9); MONOCYTES % (AUTO) 9.6 % (2-12); NEUTROPHILS # (AUTO) 5.5 X10'3 (1.8-7.7); NEUTROPHILS % (AUTO) 62.9 % (42-75); PRE OP HEMATOCRIT 46.5 % (42.0-52.0); PRE OP HEMOGLOBIN 15.5 g/dL (14.0-17.9); PRE OP PLATELET COUNT 262 X10'3 (140-440); RED BLOOD COUNT 5.13 X10'6 (4.70-6.10); RED CELL DISTRIBUTION WIDTH 13.9 % (11.5-14.5)
[2020-10-11 13:35] LABS: ALBUMIN 3.6 G/DL (3.4-5.0); ALBUMIN/GLOBULIN RATIO 0.8 (1.1-1.5); ALKALINE PHOSPHATASE 96 IU/L (46-116); BLOOD UREA NITROGEN 19 MG/DL (7-18); BUN/CREATININE RATIO 21.6 (5.4-32.0); CALCIUM 9.3 MG/DL (8.5-10.1); CHLORIDE 104 MMOL/L (99-107); CREATININE 0.88 MG/DL (0.60-1.10); PRE OP ALT 18 U/L (30-65); PRE OP AST 15 U/L (10-37); PRE OP BILIRUB, TOTAL 0.4 MG/DL (0.0-1.0); PRE OP GLUCOSE 109 MG/DL (70-104); TOTAL CARBON DIOXIDE 28.5 MMOL/L (24-32); eGFR 84 ML/MIN
[2020-10-11 13:38] LABS: PRE OP ANION GAP 9 (8-16); PRE OP POTASSIUM 4.6 MMOL/L (3.4-5.1); PRE OP SODIUM 141 MMOL/L (135-145)
[~2020-10-18] VITALS: Ht 167.6 cm; Wt 67.3 kg
[2020-10-18] VITALS (17 sets, daily range): BP systolic 133–175; BP diastolic 53–96
[~2020-10-18 08:09] MED LIST changes: -GABA-532 PO; -MULT-25 PO; +NO HOME MEDS; -THIA50TA10 PO; +ceFAZolin 2gm in dextrose, iso 50 ML IV ONE; +famotidine 20mg tablet PO ONE; +ringers solution, lacted 1,000 ML IV SCH
[2020-10-18] MEDS ORDERED: LIDOcaine 1% (10mg/ml) 2ml vial ONE (09:04)
[2020-10-18] MEDS ORDERED: morphine 2 MG/ML inj. syringe IV PRN (09:25)
[2020-10-18] MEDS ORDERED: proCHLORperazine 10 MG/2 ml inj IV PRN (09:25)
[2020-10-18] MEDS ORDERED: ringers solution, lacted 1,000 ML IV SCH (09:25)
[2020-10-18] MEDS ORDERED: morphine 4 MG/ML inj SYRINge IV PRN (09:25)
[2020-10-18] MEDS ORDERED: meperidine/PF 25mg/ml syringe IV PRN ×3 (09:25)
[2020-10-18] MEDS ORDERED: ondansetron/PF 4mg/2ml inj IV PRN (09:25)
[2020-10-18] MEDS ORDERED: LIDOcaine 1% 30ml preserv. free vial ONE (10:53)
[2020-10-18] MEDS ORDERED: BUPIVAcaine/PF 2.5 mg/ml (0.25%) 30ml vial ONE (10:53)
[2020-10-18] MEDS ORDERED: fentaNYL/PF 50MCG/1 ML 2ML syringe ONE (11:10)
[2020-10-18] MEDS ORDERED: LIDOcaine 1%/PF 5ML 10 MG/ML VIAL ONE (11:11)
[2020-10-18] MEDS ORDERED: propofol inj 20 ML IV ONE (11:11)
[2020-10-18] MEDS ORDERED: midazolam 1 mg/ML 2ml injection ONE (11:11)
[2020-10-18] MEDS ORDERED: meperidine/PF 25mg/ml syringe ONE (11:24)
[2020-10-18] MEDS ORDERED: acetaminophen 1,000mg/100ml IV 100 ML IV ONE (12:00)
[2020-10-18] MEDS ORDERED: HYDROcodone/acetaminophen 5mg/325mg tablet PO PRN ×2 (12:50)
--- NOTE | 2020-10-18 12:50 | NUR ---
Received from OR via [facility], accompanied by Anesthesiologist DR SANFORD and report given by Anesthesiologist. PATIENT STILL DROWSY - RESTLESS BUT NO C/O OF PAIN, V/S WNL, NEUROVASCULAR CHECKS INTACT, 20G PIV RUE, SCDS ON, 3 BANDAIDS TO LAP SITES OF ABDOMEN-CDI.
--- NOTE | 2020-10-18 15:20 | NUR ---
PATIENT A&OX4, DENIES PAIN, V/S WNL, NEUROVASCULAR CHECKS INTACT, 20G PIV RUE D/C, SCD OFF, 3 BANDAIDS TO LAP SITES OF ABDOMEN-CDI. PT ABLE TO VOID X 2 >100CC EACH TIME. I HAVE REVIEWED D/C INSTRUCTIONS, GIVEN RX SCRIPT FOR NORCO FOR PAIN WITH PATIENT AND PERFORMANCE ENGINEER WHO HAVE VERBALIZED UNDERSTANDING. PATIENT WAS D/C HOME WITH ALL BELONGINGS AND WITH PERFORMANCE ENGINEER - [facility] GAVE TRANSPORT HOME
== END 2020-10-18 15:20 | disposition home or self-care (01) ==
LOC: PAS 08:09
PROVIDERS: ATTEND Surgery
DX: K40.90 Unilateral inguinal hernia, without obstruction or gangrene, not specified as recurrent (principal); K42.9 Umbilical hernia without obstruction or gangrene; Z20.822 Contact with and (suspected) exposure to COVID-19; I10 Essential (primary) hypertension; G47.00 Insomnia, unspecified; F17.210 Nicotine dependence, cigarettes, uncomplicated; Z89.511 Acquired absence of right leg below knee; Z98.890 Other specified postprocedural states; Z86.19 Personal history of other infectious and parasitic diseases; Z95.820 Peripheral vascular angioplasty status with implants and grafts; Z90.49 Acquired absence of other specified parts of digestive tract; Z79.899 Other long term (current) drug therapy
CPT/HCPCS: 36415; 49585; 49650; 80053; 82948; 85025; 87635; 93005; C1781; J0131; J2001; J2175; J2250; J2704; J3010; J3490; J7120; A4215; A4618

== ENCOUNTER 2021-01-14 13:57 | Emergency (ER) | payer MEDICARE, MEDICAID ==
[~2021-01-14] VITALS: Ht 167.6 cm; Wt 68.2 kg
--- NOTE | 2021-01-14 13:59 | NUR ---
Ligia [phone]
[2021-01-14 14:10] VITALS: BP 142/109
--- NOTE | 2021-01-14 14:17 | NUR ---
COLD APPLIED TO RIGHT KNEE
[2021-01-14] MEDS ORDERED: bacitracin 15gm ointment TP ONE (15:45)
== END 2021-01-14 17:25 | disposition home or self-care (01) ==
LOC: ER 13:57
DX: S80.811A Abrasion, right lower leg, initial encounter (principal); M79.604 Pain in right leg; I10 Essential (primary) hypertension; J44.9 Chronic obstructive pulmonary disease, unspecified; F41.9 Anxiety disorder, unspecified; F15.90 Other stimulant use, unspecified, uncomplicated; F11.90 Opioid use, unspecified, uncomplicated; Z86.19 Personal history of other infectious and parasitic diseases; Z98.890 Other specified postprocedural states; Z72.89 Other problems related to lifestyle; W19.XXXA Unspecified fall, initial encounter; Y93.89 Activity, other specified; Y92.89 Other specified places as the place of occurrence of the external cause; Y99.8 Other external cause status
CPT/HCPCS: 99284

== ENCOUNTER 2021-07-10 09:35 | Emergency (ER) | payer MEDICARE, MEDICAID ==
[~2021-07-10] VITALS: Ht 167.6 cm; Wt 70.0 kg
[2021-07-10 13:35] VITALS: BP 157/87
--- NOTE | 2021-07-10 13:35 | NUR ---
pt given wheelchair
== END 2021-07-10 13:37 | disposition home or self-care (01) ==
LOC: ER 09:35
DX: T69.9XXA Effect of reduced temperature, unspecified, initial encounter (principal); I10 Essential (primary) hypertension; J44.9 Chronic obstructive pulmonary disease, unspecified; F15.90 Other stimulant use, unspecified, uncomplicated; F11.90 Opioid use, unspecified, uncomplicated; Z72.89 Other problems related to lifestyle; Z86.19 Personal history of other infectious and parasitic diseases; Z59.00 Homelessness unspecified; Z89.511 Acquired absence of right leg below knee
CPT/HCPCS: 99283

== ENCOUNTER 2021-11-06 14:16 | Emergency (ER) | payer MEDICARE, MEDICAID ==
[~2021-11-06] VITALS: Ht 167.6 cm; Wt 68.2 kg
[2021-11-06 16:51] LABS: BASOPHILS % (AUTO) 0.3 % (0-1); EOSINOPHILS # (AUTO) 0.1 X10'3 (0-0.9); EOSINOPHILS % (AUTO) 0.8 % (0-6); HEMOGLOBIN 13.1 g/dl (14.0-17.9); LYMPHOCYTES # (AUTO) 1.8 X10'3 (1.1-4.8); LYMPHOCYTES % (AUTO) 13.3 % (21-51); MEAN CORPUSCULAR HEMOGLOBIN 28.9 PG (27.0-31.0); MEAN CORPUSCULAR HGB CONC 33.6 g/dL (33.0-36.5); MONOCYTES # (AUTO) 1.2 X10'3 (0-0.9); MONOCYTES % (AUTO) 8.6 % (2-12); NEUTROPHILS # (AUTO) 10.3 X10'3 (1.8-7.7); PLATELET COUNT 258 X10'3 (140-440); RED BLOOD COUNT 4.53 X10'6 (4.70-6.10); RED CELL DISTRIBUTION WIDTH 13.9 % (11.5-14.5); WHITE BLOOD COUNT 13.4 X10'3 (4.5-11.0)
[2021-11-06 17:09] LABS: ALANINE AMINOTRANSFERASE 24 U/L (12-78); ALBUMIN 3.5 G/DL (3.4-5.0); ALBUMIN/GLOBULIN RATIO 0.8 (1.1-1.5); ALKALINE PHOSPHATASE 98 IU/L (46-116); ANION GAP 8 (8-16); ASPARTATE AMINO TRANSFERASE 17 U/L (10-37); BILIRUBIN,TOTAL 0.7 MG/DL (0.1-1.0); BLOOD UREA NITROGEN 17 MG/DL (7-18); BUN/CREATININE RATIO 19.8 (5.4-32.0); CALCIUM 9.1 MG/DL (8.5-10.1); CHLORIDE 98 MMOL/L (99-107); CREATININE 0.86 MG/DL (0.60-1.10); GLUCOSE 102 MG/DL (70-104); SODIUM 133 MMOL/L (135-145); TOTAL CARBON DIOXIDE 26.6 MMOL/L (24-32); TOTAL PROTEIN 8.1 G/DL (6.4-8.2); eGFR 86 ML/MIN
[2021-11-06 17:12] LABS: URINE AMPHETAMINE SCREEN POSITIVE (Neg); URINE BARBITUATE SCREEN NEGATIVE (Neg); URINE BENZODIAZEPINES SCREEN NEGATIVE (Neg); URINE CANNABINOID SCREEN POSITIVE (Neg); URINE COCAINE SCREEN NEGATIVE (Neg); URINE METHADONE SCREEN NEGATIVE (Neg); URINE OPIATE SCREEN NEGATIVE (Neg); URINE PHENCYCLIDINE SCREEN NEGATIVE (Neg)
[2021-11-06 17:12] LABS: C-REACTIVE PROTEIN 14.51 MG/DL (0.0-0.5)
[2021-11-06] MEDS ORDERED: LIDOcaine 1% W/epiNEPHrine 1:200,000 10ml vial IJ ONE (17:25)
[2021-11-06] MEDS ORDERED: LIDOCAINE 2% w/EPI 1:100:000 30mL injection MDV**cath lab 1 only SQ ONE ×2 (17:25)
[2021-11-06] MEDS ORDERED: ACET-2119 PO (17:34)
[2021-11-06] MEDS ORDERED: DOXY100C43 PO (17:34)
[2021-11-06] MEDS ORDERED: CEPH500C81 PO (17:34)
[2021-11-06 18:48] VITALS: BP 150/80
== END 2021-11-06 18:52 | disposition home or self-care (01) ==
LOC: ER 14:16
DX: L02.11 Cutaneous abscess of neck (principal); R07.89 Other chest pain; R06.02 Shortness of breath; I10 Essential (primary) hypertension; J44.9 Chronic obstructive pulmonary disease, unspecified; F15.90 Other stimulant use, unspecified, uncomplicated; F11.90 Opioid use, unspecified, uncomplicated; Z72.89 Other problems related to lifestyle; Z98.890 Other specified postprocedural states; Z79.2 Long term (current) use of antibiotics; Z79.899 Other long term (current) drug therapy
CPT/HCPCS: 10060; 36415; 71045; 80053; 80305; 84484; 85025; 85610; 85651; 86140; 93005; 99285

== ENCOUNTER 2022-10-21 17:33 | Emergency (ER) | payer MEDICARE, MEDICAID ==
[~2022-10-21] VITALS: Ht 167.6 cm; Wt 72.7 kg
[2022-10-21 19:08] LABS: CLARITY,URINE SLIGHTLY CLOUDY (Clear); COLOR,URINE YELLOW (Yellow); GLUCOSE, URINE NEGATIVE (Neg); KETONES,URINE TRACE mg/dl (Neg); LEUKOCYTE ESTERASE ,URINE NEGATIVE (Neg); NITRITES, URINE NEGATIVE (Neg); OCCULT BLOOD,URINE MODERATE (Neg); PH,URINE 5.5 (4.8-8.0); PROTEIN,URINE 30 mg/dl (Neg); UROBILINOGEN,URINE 0.2 E.U/dL (0.2-1.0)
[2022-10-21 19:19] LABS: UA COLLECTION TYPE STRAIGHT CATH
[2022-10-21 19:23] LABS: WBC,URINE 0-4 /HPF (0-4)
[2022-10-21 19:24] LABS: BACTERIA,URINE NONE SEEN /HPF (Neg); MUCUS STRANDS FEW /LPF (Neg); RENAL CELLS, URINE MODERATE /HPF; SQUAMOUS EPITHELIAL CELL,UR FEW /LPF (FEW); TRANSITIONAL EPI CELLS,URINE FEW /HPF
[2022-10-21 20:32] LABS: BASOPHILS # (AUTO) 0.1 X10'3 (0-0.2); BASOPHILS % (AUTO) 0.5 % (0-1); EOSINOPHILS # (AUTO) 0.1 X10'3 (0-0.9); EOSINOPHILS % (AUTO) 0.8 % (0-6); HEMATOCRIT 37.9 % (42.0-52.0); HEMOGLOBIN 12.6 g/dl (14.0-17.9); LYMPHOCYTES % (AUTO) 9.5 % (21-51); MEAN CORPUSCULAR HEMOGLOBIN 29.5 PG (27.0-31.0); MEAN CORPUSCULAR HGB CONC 33.3 g/dL (33.0-36.5); MEAN CORPUSCULAR VOLUME 88.4 FL (78-98); MEAN PLATELET VOLUME 8.6 FL (7.4-10.4); MONOCYTES # (AUTO) 0.6 X10'3 (0-0.9); MONOCYTES % (AUTO) 5.9 % (2-12); NEUTROPHILS # (AUTO) 8.9 X10'3 (1.8-7.7); NEUTROPHILS % (AUTO) 83.3 % (42-75); PLATELET COUNT 265 X10'3 (140-440); RED BLOOD COUNT 4.29 X10'6 (4.70-6.10); RED CELL DISTRIBUTION WIDTH 13.7 % (11.5-14.5); WHITE BLOOD COUNT 10.7 X10'3 (4.5-11.0)
[2022-10-21 20:45] LABS: ALANINE AMINOTRANSFERASE 19 U/L (12-78); ALBUMIN 3.3 G/DL (3.4-5.0); ALBUMIN/GLOBULIN RATIO 0.8 (1.1-1.5); ALKALINE PHOSPHATASE 90 IU/L (46-116); ANION GAP 8 (8-16); ASPARTATE AMINO TRANSFERASE 25 U/L (10-37); BILIRUBIN,TOTAL 0.5 MG/DL (0.1-1.0); BLOOD UREA NITROGEN 28 MG/DL (7-18); BUN/CREATININE RATIO 41.2 (5.4-32.0); CHLORIDE 104 MMOL/L (99-107); CREATININE 0.68 MG/DL (0.60-1.10); GLUCOSE 106 MG/DL (70-104); LIPASE < 50 U/L (73-393); POTASSIUM 3.9 MMOL/L (3.5-5.1); SODIUM 138 MMOL/L (135-145); TOTAL CARBON DIOXIDE 25.9 MMOL/L (24-32); TOTAL PROTEIN 7.3 G/DL (6.4-8.2); eGFR > 90 ML/MIN
[2022-10-21 21:07] VITALS: BP 114/63
[2022-10-21] MEDS ORDERED: ketorolac trometh. 30mg/ml inj. IM ONE (21:30)
[2022-10-21] MEDS ORDERED: ondansetron 4mg rapidly disintigrating tab PO ONE (21:30)
[2022-10-21] MEDS ORDERED: HYDROcodone/acetaminophen 10/325mg tab PO ONE (21:30)
[2022-10-21] MEDS ORDERED: OXYC-149 PO (21:33)
[2022-10-21] MEDS ORDERED: FLO0.4C PO (21:33)
[2022-10-21] MEDS ORDERED: tamsulosin 0.4mg capsule PO SCH (21:35)
== END 2022-10-21 22:00 | disposition home or self-care (01) ==
LOC: ER 17:34
DX: N20.2 Calculus of kidney with calculus of ureter (principal); N20.1 Calculus of ureter; I10 Essential (primary) hypertension; J44.9 Chronic obstructive pulmonary disease, unspecified; F41.9 Anxiety disorder, unspecified; F15.10 Other stimulant abuse, uncomplicated; Z79.899 Other long term (current) drug therapy
CPT/HCPCS: 74176; 80053; 81001; 83690; 85025; 96372; 99285; J1885

== ENCOUNTER 2023-03-15 01:53 | Emergency (ER) | payer MEDICARE, MEDICAID ==
[~2023-03-15] VITALS: Ht 167.6 cm; Wt 72.0 kg
[~2023-03-15 01:53] MED LIST changes: -NO HOME MEDS; +OXYC-149 PO; -ceFAZolin 2gm in dextrose, iso 50 ML IV ONE; -famotidine 20mg tablet PO ONE; -ringers solution, lacted 1,000 ML IV SCH
[2023-03-15 01:55] VITALS: BP 119/74; PULSE 80; TEMP 97.8; O2SAT 100
[2023-03-15 02:27] VITALS: RESP 14
[2023-03-15 03:55] LABS: BASOPHILS # (AUTO) 0.1 X10'3 (0-0.2); BASOPHILS % (AUTO) 0.8 % (0-1); EOSINOPHILS # (AUTO) 0.2 X10'3 (0-0.9); EOSINOPHILS % (AUTO) 2.8 % (0-6); HEMATOCRIT 42.2 % (42.0-52.0); HEMOGLOBIN 14.1 g/dl (14.0-17.9); LYMPHOCYTES # (AUTO) 1.7 X10'3 (1.1-4.8); LYMPHOCYTES % (AUTO) 21.8 % (21-51); MEAN CORPUSCULAR HEMOGLOBIN 29.3 PG (27.0-31.0); MEAN CORPUSCULAR HGB CONC 33.3 g/dL (33.0-36.5); MEAN PLATELET VOLUME 8.7 FL (7.4-10.4); MONOCYTES # (AUTO) 0.8 X10'3 (0-0.9); MONOCYTES % (AUTO) 10.1 % (2-12); NEUTROPHILS % (AUTO) 64.5 % (42-75); PLATELET COUNT 205 X10'3 (140-440); RED BLOOD COUNT 4.79 X10'6 (4.70-6.10); RED CELL DISTRIBUTION WIDTH 15.9 % (11.5-14.5); WHITE BLOOD COUNT 7.7 X10'3 (4.5-11.0)
[2023-03-15 04:05] LABS: ALANINE AMINOTRANSFERASE 20 U/L (12-78); ALBUMIN 3.7 G/DL (3.4-5.0); ALBUMIN/GLOBULIN RATIO 0.9 (1.1-1.5); ALKALINE PHOSPHATASE 102 IU/L (46-116); ANION GAP 11 (8-16); ASPARTATE AMINO TRANSFERASE 20 U/L (10-37); BILIRUBIN,TOTAL 0.9 MG/DL (0.1-1.0); BLOOD UREA NITROGEN 30 MG/DL (7-18); BUN/CREATININE RATIO 32.3 (10.0-20.0); CALCIUM 9.6 MG/DL (8.5-10.1); CHLORIDE 105 MMOL/L (99-107); CREATININE 0.93 MG/DL (0.60-1.10); GLUCOSE 94 MG/DL (70-104); POTASSIUM 3.8 MMOL/L (3.5-5.1); SODIUM 143 MMOL/L (135-145); TOTAL CARBON DIOXIDE 26.6 MMOL/L (24-32); TOTAL PROTEIN 7.7 G/DL (6.4-8.2); eCRCL 59 ML/MIN; eGFR 79 ML/MIN
[2023-03-15 04:17] LABS: BILIRUBIN,URINE SMALL (Neg); GLUCOSE, URINE NEGATIVE (Neg); KETONES,URINE TRACE mg/dl (Neg); LEUKOCYTE ESTERASE ,URINE NEGATIVE (Neg); NITRITES, URINE NEGATIVE (Neg); OCCULT BLOOD,URINE NEGATIVE (Neg); PH,URINE 5.5 (4.8-8.0); PROTEIN,URINE TRACE mg/dl (Neg); UROBILINOGEN,URINE 0.2 E.U/dL (0.2-1.0)
[2023-03-15 04:18] LABS: ETHANOL < 10 MG/DL (<10)
[2023-03-15 04:23] LABS: URINE AMPHETAMINE SCREEN POSITIVE (Neg); URINE BARBITUATE SCREEN NEGATIVE (Neg); URINE BENZODIAZEPINES SCREEN NEGATIVE (Neg); URINE CANNABINOID SCREEN NEGATIVE (Neg); URINE COCAINE SCREEN NEGATIVE (Neg); URINE METHADONE SCREEN NEGATIVE (Neg); URINE OPIATE SCREEN NEGATIVE (Neg); URINE PHENCYCLIDINE SCREEN NEGATIVE (Neg)
[2023-03-15 04:31] LABS: COLOR,URINE DARK YELLOW (Yellow); UA COLLECTION TYPE VOIDED
[2023-03-15 04:33] LABS: CLARITY,URINE SLIGHTLY CLOUDY (Clear)
[2023-03-15 04:34] LABS: BACTERIA,URINE 2+ /HPF (Neg); SQUAMOUS EPITHELIAL CELL,UR FEW /LPF (FEW); TRANSITIONAL EPI CELLS,URINE FEW /HPF
[2023-03-15] MEDS ORDERED: CEPH-585 PO (04:50)
== END 2023-03-15 05:28 | disposition home or self-care (01) ==
LOC: ER 01:53
DX: F15.10 Other stimulant abuse, uncomplicated (principal); N39.0 Urinary tract infection, site not specified; I10 Essential (primary) hypertension; J44.9 Chronic obstructive pulmonary disease, unspecified; Z79.899 Other long term (current) drug therapy
CPT/HCPCS: 36415; 71045; 80053; 80305; 80320; 81001; 82140; 85025; 87088; 93005; 99285

== ENCOUNTER 2023-03-19 02:32 | Emergency (ER) | payer MEDICARE, MEDICAID ==
[~2023-03-19] VITALS: Ht 167.6 cm; Wt 75.0 kg
[~2023-03-19 02:32] MED LIST changes: +CEPH-585 PO
[2023-03-19 02:35] VITALS: BP 156/68; PULSE 84; RESP 18; TEMP 98.1; O2SAT 97
== END 2023-03-19 03:55 | disposition home or self-care (01) ==
LOC: ER 02:33
DX: F15.90 Other stimulant use, unspecified, uncomplicated (principal); Z59.00 Homelessness unspecified; Z89.511 Acquired absence of right leg below knee; I10 Essential (primary) hypertension; J44.9 Chronic obstructive pulmonary disease, unspecified; Z79.2 Long term (current) use of antibiotics; Z79.899 Other long term (current) drug therapy
CPT/HCPCS: 99283

== ENCOUNTER 2023-03-30 07:59 | Emergency (ER) | payer MEDICARE, MEDICAID ==
[~2023-03-30] VITALS: Ht 167.6 cm; Wt 75.0 kg
[2023-03-30 10:06] VITALS: BP 131/84; PULSE 82; RESP 18; TEMP 97.7; O2SAT 99
== END 2023-03-30 11:13 | disposition home or self-care (01) ==
LOC: ER 08:00
DX: T87.89 Other complications of amputation stump (principal); M25.562 Pain in left knee; I10 Essential (primary) hypertension; J44.9 Chronic obstructive pulmonary disease, unspecified; F15.90 Other stimulant use, unspecified, uncomplicated; Z79.2 Long term (current) use of antibiotics; Z79.899 Other long term (current) drug therapy
CPT/HCPCS: 99284

== ENCOUNTER 2023-04-06 00:46 | Emergency (ER) | payer MEDICARE, MEDICAID ==
[~2023-04-06] VITALS: Ht 167.6 cm; Wt 75.0 kg
[2023-04-06 01:08] VITALS: BP 144/75; PULSE 76; RESP 16; TEMP 98.4; O2SAT 99
[2023-04-06] MEDS ORDERED: acetaminophen 325mg tablet PO ONE (01:15)
== END 2023-04-06 01:29 | disposition home or self-care (01) ==
LOC: ER 00:47
DX: G89.29 Other chronic pain (principal); M79.604 Pain in right leg; I10 Essential (primary) hypertension; J44.9 Chronic obstructive pulmonary disease, unspecified; F41.9 Anxiety disorder, unspecified; Z79.899 Other long term (current) drug therapy
CPT/HCPCS: 99282

== ENCOUNTER 2023-05-21 19:51 | Emergency (ER) | payer MEDICARE, MEDICAID ==
[~2023-05-21] VITALS: Ht 167.6 cm; Wt 72.7 kg
[2023-05-22 06:14] LABS: BASOPHILS # (AUTO) 0.1 X10'3 (0-0.2); HEMOGLOBIN 14.5 g/dl (14.0-17.9); LYMPHOCYTES # (AUTO) 1.9 X10'3 (1.1-4.8)
[2023-05-22 06:15] LABS: EOSINOPHILS # (AUTO) 0.4 X10'3 (0-0.9); EOSINOPHILS % (AUTO) 5.1 % (0-6); HEMATOCRIT 43.9 % (42.0-52.0); LYMPHOCYTES % (AUTO) 23.4 % (21-51); MEAN CORPUSCULAR HEMOGLOBIN 29.7 PG (27.0-31.0); MEAN CORPUSCULAR VOLUME 90.2 FL (78-98); MEAN PLATELET VOLUME 9.7 FL (7.4-10.4); MONOCYTES # (AUTO) 0.8 X10'3 (0-0.9); MONOCYTES % (AUTO) 10.1 % (2-12); NEUTROPHILS % (AUTO) 60.4 % (42-75); PLATELET COUNT 206 X10'3 (140-440); RED BLOOD COUNT 4.87 X10'6 (4.70-6.10); RED CELL DISTRIBUTION WIDTH 14.4 % (11.5-14.5); WHITE BLOOD COUNT 8.2 X10'3 (4.5-11.0)
[2023-05-22 07:11] LABS: LARGE PLATELETS FEW; PLATELET ESTIMATE NORMAL
[2023-05-22 08:37] LABS: ALANINE AMINOTRANSFERASE 25 U/L (12-78); ALBUMIN 3.3 G/DL (3.4-5.0); ALBUMIN/GLOBULIN RATIO 0.9 (1.1-1.5); ALKALINE PHOSPHATASE 83 IU/L (46-116); ANION GAP 7 (8-16); ASPARTATE AMINO TRANSFERASE 17 U/L (10-37); BILIRUBIN,TOTAL 0.4 MG/DL (0.1-1.0); BLOOD UREA NITROGEN 20 MG/DL (7-18); CHLORIDE 106 MMOL/L (99-107); CREATININE 0.69 MG/DL (0.60-1.10); GLUCOSE 103 MG/DL (70-104); POTASSIUM 3.7 MMOL/L (3.5-5.1); SODIUM 140 MMOL/L (135-145); TOTAL CARBON DIOXIDE 26.8 MMOL/L (24-32); TOTAL PROTEIN 6.9 G/DL (6.4-8.2); eCRCL 78 ML/MIN; eGFR > 90 ML/MIN
[2023-05-22 08:42] LABS: BILIRUBIN,URINE NEGATIVE (Neg); CLARITY,URINE CLEAR (Clear); COLOR,URINE YELLOW (Yellow); GLUCOSE, URINE NEGATIVE (Neg); KETONES,URINE NEGATIVE (Neg); LEUKOCYTE ESTERASE ,URINE NEGATIVE (Neg); NITRITES, URINE NEGATIVE (Neg); OCCULT BLOOD,URINE TRACE-INTACT (Neg); PH,URINE 6.5 (4.8-8.0); PROTEIN,URINE NEGATIVE (Neg); UROBILINOGEN,URINE 0.2 E.U/dL (0.2-1.0)
[2023-05-22 08:47] LABS: UA COLLECTION TYPE CLN CATCH MIDSTREAM
[2023-05-22 08:49] LABS: BACTERIA,URINE NONE SEEN /HPF (Neg); MUCUS STRANDS NONE SEEN /LPF (Neg); RBC,URINE NONE SEEN /HPF (0-2); SQUAMOUS EPITHELIAL CELL,UR FEW /LPF (FEW); WBC,URINE 0-4 /HPF (0-4)
[2023-05-22 15:00] VITALS: BP 141/66; PULSE 63; RESP 17; TEMP 98; O2SAT 98
== END 2023-05-22 15:02 | disposition home or self-care (01) ==
LOC: ER 19:52
DX: S00.81XA Abrasion of other part of head, initial encounter (principal); I10 Essential (primary) hypertension; J44.9 Chronic obstructive pulmonary disease, unspecified; F15.90 Other stimulant use, unspecified, uncomplicated; E86.0 Dehydration; Z79.2 Long term (current) use of antibiotics; Z79.899 Other long term (current) drug therapy; W19.XXXA Unspecified fall, initial encounter; Y93.89 Activity, other specified; Y92.89 Other specified places as the place of occurrence of the external cause; Y99.8 Other external cause status
CPT/HCPCS: 36415; 70450; 80053; 81001; 83735; 85008; 85025; 93005; 99285

== ENCOUNTER 2023-06-10 19:14 | Emergency (ER) | payer MEDICARE, MEDICAID ==
[~2023-06-10] VITALS: Ht 167.6 cm; Wt 75.0 kg
[2023-06-10 19:28] VITALS: BP 186/92; PULSE 85; RESP 16; TEMP 97.7; O2SAT 99
[2023-06-10] MEDS ORDERED: TETanus/Pertussis (Acell)/Diphther VAC/PF (Tdap-Adult) 0.5ml syringe IMVAC ONE (21:20)
[2023-06-10] MEDS ORDERED: bacitracin 15gm ointment TP ONE (21:20)
[2023-07-02] MEDS ORDERED: AMLO10TA13 PO (16:04)
[2023-07-02] MEDS ORDERED: ATOR-2 PO (16:04)
[2023-07-02] MEDS ORDERED: CLOP75TA34 PO (16:04)
[2023-07-02] MEDS ORDERED: OLAN2.5T28 PO (16:04)
[2023-07-04] MEDS ORDERED: ASPI-1071 PO (11:11)
[2023-07-05] MEDS ORDERED: AMOX-580 PO (12:54)
== END 2023-06-10 22:30 | disposition home or self-care (01) ==
LOC: ER 19:15
DX: S00.81XA Abrasion of other part of head, initial encounter (principal); S09.90XA Unspecified injury of head, initial encounter; I10 Essential (primary) hypertension; J44.9 Chronic obstructive pulmonary disease, unspecified; F15.10 Other stimulant abuse, uncomplicated; F11.10 Opioid abuse, uncomplicated; Z79.899 Other long term (current) drug therapy; W05.0XXA Fall from non-moving wheelchair, initial encounter; Y93.89 Activity, other specified; Y92.89 Other specified places as the place of occurrence of the external cause; Y99.8 Other external cause status
CPT/HCPCS: 70450; 73130; 73521; 82948; 90471; 90715; 99285

== ENCOUNTER 2023-06-27 09:59 | Emergency (ER) | payer MEDICARE, MEDICAID ==
[~2023-06-27] VITALS: Ht 167.6 cm; Wt 75.0 kg
[2023-06-27 11:31] VITALS: BP 122/87; PULSE 77; RESP 16; TEMP 98.1; O2SAT 98
--- NOTE | 2023-06-27 11:33 | NUR ---
PT GIVEN WEATHER APPROPRIATE CLOTHES AND BUS PASS.
--- NOTE | 2023-06-27 11:40 | NUR ---
QUILL COLLECTOR CHARTING REVIEWED
[2023-07-02] MEDS ORDERED: OLAN2.5T28 PO (16:04)
[2023-07-02] MEDS ORDERED: AMLO10TA13 PO (16:04)
[2023-07-02] MEDS ORDERED: CLOP75TA34 PO (16:04)
[2023-07-02] MEDS ORDERED: ATOR-2 PO (16:04)
== END 2023-06-27 11:46 | disposition home or self-care (01) ==
LOC: ER 10:00
DX: Z00.8 Encounter for other general examination (principal); Z59.00 Homelessness unspecified
CPT/HCPCS: 99284

== ENCOUNTER 2023-09-04 21:39 | Emergency (ER) | payer MEDICARE, MEDICAID ==
[~2023-09-04] VITALS: Ht 167.6 cm; Wt 68.2 kg
[~2023-09-04 21:39] MED LIST changes: +AMLO10TA13 PO; +AMOX-580 PO; +ASPI-1071 PO; +ATOR-2 PO; +CLOP75TA34 PO; +OLAN2.5T28 PO; -OXYC-149 PO
[2023-09-04 22:44] VITALS: BP 141/65; PULSE 83; RESP 15; TEMP 98.3; O2SAT 97
== END 2023-09-05 02:47 | disposition left against medical advice (07) ==
LOC: ER 21:39
DX: R07.89 Other chest pain (principal); Z53.21 Procedure and treatment not carried out due to patient leaving prior to being seen by health care provider
CPT/HCPCS: 93005; 99281

== ENCOUNTER 2023-09-05 23:47 | Emergency (ER) | payer MEDICARE, MEDICAID | END 2023-09-06 00:04 | disposition left against medical advice (07) | LOC: ER 23:47 | DX: Z00.8 Encounter for other general examination (principal); Z53.21 Procedure and treatment not carried out due to patient leaving prior to being seen by health care provider | CPT/HCPCS: 99281 ==

== ENCOUNTER 2024-12-30 21:24 | Emergency (ER) | payer MEDICARE, MEDICAID ==
[~2024-12-30] VITALS: Ht 167.6 cm; Wt 69.1 kg
[~2024-12-30 21:24] MED LIST changes: -CEPH-585 PO; -OLAN2.5T28 PO; +OLAN2.5T77 PO
--- NOTE | 2024-12-30 21:30 | Physician Documentation ---
History of Present Illness ~ Stated Complaint: FALL Time Seen by MD: 21:25 Primary Medical Doctor: [facility] Patient presents to the emergency room for evaluation after a fall at home. He was transferring from his bed to his wheelchair when he fell prompting him to call 911. Positive head strike on carpeted ground. He is not on blood thinners. He does have a right lower extremity amputation and history of prior stroke. He lives alone . He does endorse dizziness however he states that this has been present ever since his stroke. He denies any pain. Tetanus within 5 Years?: Yes Medication Reconciliation Allergies: Coded Allergies: No Known Allergies (Unverified , 12/30/24) Scheduled Amlodipine Besylate (Amlodipine Besylate), 1 TAB PO DAILY, (Reported) Amox Tr/Potassium Clavulanate 875/125 MG (Augmentin 875/125 MG), 1 TAB PO BID Aspirin (Ecotrin*), 1 TAB PO DAILY Atorvastatin Calcium (Atorvastatin Calcium), 1 TAB PO DAILY, (Reported) Clopidogrel Bisulfate (Clopidogrel), 1 TAB PO DAILY, (Reported) Scheduled PRN Olanzapine (Olanzapine), 1 TAB PO HS PRN for anxiety, (Reported) Past Medical History Past Medical History: CVA/TIA/Stroke, Hypertension, COPD, Hepatitis C, Anxiety Past Surgical History: orthopedic surgeries, other Other Past Surgical History: Right BKA Patient History: Patient reports no known family medical history. Alcohol Use: Occasionally Drug Use: methamphetamine, heroin Lives In: Home Occupation: retired Review of Systems ROS All review of systems negative except as per HPI Physical Exam Physical Exam General: Patient is awake, alert, oriented x4 in no acute distress Head: Normocephalic and atraumatic. Eyes: Conjunctival normal. EOMI. PERRL. ENT: Mucous membranes moist. Neck: Supple, trachea is midline. Chest: Clear to auscultation bilaterally without rales, rhonchi, or wheezes. There is no accessory muscle use or retractions. Cardiac: RRR without murmurs, gallops, or rubs. Abd: Soft, nondistended, nontender, with normoactive bowel sounds. No guarding, rebound, or rigidity. Extremities: Right lower extremity noted to be amputated below-knee Neuro: Noted residual right-sided deficits. No facial asymmetry Progress Results/Orders Results/Orders Orders - TAY SALAS MD Ct Head (12/30/24 22:00) Chest,Single View (12/30/24 22:26) Ortho Orders (12/31/24 00:06) Completed Orders - TAY SALAS MD Ct Head (12/30/24 22:00) Cbc/Diff (12/30/24 21:35) Chest,Single View (12/30/24 22:26) BMP (12/30/24 21:35) Hs Troponin I W Calculations (12/30/24 21:35) Hs Troponin I W Calculations (12/30/24 23:35) MG (12/30/24 21:35) Electrocardiogram (12/30/24 21:35) Ua W/Microscopic, Cult If Ind (12/30/24 23:28) Vital Signs 12/30/24 12/30/24 12/30/24 21:28 22:30 22:36 Temp 98.7 Pulse 87 78 Resp 16 16 16 B/P (MAP) 152/83 132/78 (96) Pulse Ox 97 96 O2 Flow Rate 0 0 Laboratory Tests Test 12/30/24 22:11 12/30/24 23:28 12/30/24 23:33 Sodium Level 141 Potassium Level 3.4 L Chloride Level 105 Carbon Dioxide Level 27.3 Anion Gap 9 Blood Urea Nitrogen 14 Creatinine 1.07 Estimated GFR/1.73 m2 66 BUN/Creatinine Ratio 13.1 Glucose Level 118 H Calcium Level 8.4 L Magnesium Level 1.8 Troponin I High Sensitivity 9 11 Albumin 3.6 Chemistry Comments Urine Specimen Description Cln catch midstream Urine Color Yellow Urine Clarity Clear Urine pH 6.0 Urine Specific [place] 1.025 Urine Protein Negative Urine Glucose (UA) Negative Urine Ketones Negative Urine Occult Blood Trace-intact Urine Nitrite Negative Urine Bilirubin Negative Urine Urobilinogen 1.0 Urine Leukocyte Esterase Negative Urine RBC 0-2 Urine WBC None seen Urine Squamous Epithelial Cells Few Urine Bacteria None seen Urine Mucus None seen Urine Culture Indicated Not ind Volume Urine Centrifuged 10 ml Urine Comment White Blood Count 8.8 Red Blood Count 4.57 L Hemoglobin 13.9 L Hematocrit 40.6 L Mean Corpuscular Volume 89.0 Mean Corpuscular Hemoglobin 30.4 Mean Corpuscular Hemoglobin Concent 34.2 Red Cell Distribution Width 13.2 Platelet Count 192 Mean Platelet Volume 9.0 Neutrophils (%) (Auto) 59.3 Lymphocytes (%) (Auto) 26.0 Monocytes (%) (Auto) 10.0 Eosinophils (%) (Auto) 3.9 Basophils (%) (Auto) 0.8 Neutrophils # (Auto) 5.2 Lymphocytes # (Auto) 2.3 Monocytes # (Auto) 0.9 Eosinophils # (Auto) 0.3 Basophils # (Auto) 0.1 CBC Comment Troponin I High Sens Percent Delta 22 Troponin I Hi Sens Absolute Change 2 EKG/XRAY/CT/US/VASC/MRI EKG : Additional Comment EKG interpreted by myself shows time of 08/24/2038, rate 86, sinus rhythm, normal axis, no ST changes Medical Decision Making Findings Patient presented to the emergency room after falling at home. Differentials include but are not limited to fractures, dislocations, soft tissue injury, intracranial bleed, urinary tract infection, electrolyte disturbances, dehydration therefore emergent labs and imaging indicated. CT scan is reassuring as are labs. Patient feels safe going home. ER precautions discussed Departure Disposition: 01 HOME / SELF CARE / HOMELESS Impression: Primary Impression: Fall Condition: Stable Discharge Instructions: Fall Prevention in the Home, Adult, [id number] Referrals: NO PRIMARY CARE PROVIDER (PCP) Signature Scribe Signature: No scribe Attestation: The note accurately reflects work and decisions made by me.Tay Salas MD 12/31/24 00:10 TAY SALAS MD December 30, 2024 21:30
--- NOTE | 2024-12-30 21:42 | ELECTROCARDIOGRAPH REPORT ---
[facility] Test Date: 2024-12-30 Test Time: 21:39:13 Pat Name: DAVID ALAMO Department: [facility]- Patient ID: [facility]-[id number] Room: Gender: M Recycling Manager: : 1945 Requested By: GABBI SANCHEZ Order Number: [id number] Reading MD: Dr. Jose Saldaña Measurements Intervals [place] Rate: 86 P: 67 TX: 141 QRS: 58 QRSD: 80 T: 57 QT: 384 QTc: 460 Interpretive Statements Sinus rhythm Electronically Signed On 01-02-2025 11:03:[address] Jose Saldaña Please click the below link to view image of tracing.
[2024-12-30 22:27] LABS: ALBUMIN 3.6 G/DL (3.4-5.0); ANION GAP 9 (8-16); BLOOD UREA NITROGEN 14 MG/DL (7-18); BUN/CREATININE RATIO 13.1 (10.0-20.0); CALCIUM 8.4 MG/DL (8.5-10.1); CHLORIDE 105 MMOL/L (99-107); CREATININE 1.07 MG/DL (0.60-1.10); GLUCOSE 118 MG/DL (70-104); MAGNESIUM 1.8 MG/DL (1.5-2.4); POTASSIUM 3.4 MMOL/L (3.5-5.1); SODIUM 141 MMOL/L (135-145); TOTAL CARBON DIOXIDE 27.3 MMOL/L (24-32); eCRCL 50 ML/MIN; eGFR 66 ML/MIN
--- NOTE | 2024-12-30 22:34 | RADIOLOGY REPORT ---
CT CT HEAD INDICATION: fall COMPARISON: MR MRI HEAD on DOS: 07/03/23, CT CT STROKE ALERT on DOS: 07/02/23, CT CT HEAD on DOS: 06/10/23 TECHNIQUE: CT of the head without intravenous contrast. RADIATION DOSE: CTDIvol: mGy, DLP: mGy*cm FINDINGS: There is no evidence of intracranial hemorrhage, acute infarct, extra-axial collection, mass effect, midline shift, herniation or hydrocephalus. Again noted are old infarcts in the high left frontal a nd parietal lobes which have been present on prior studies dating back to at least June 2023. Mod erate ventricular enlargement and mild sulcal enlargement related to cerebral volume loss. Visualized paranasal sinuses and mastoid air cells are clear. Soft tissues and osseous structures are unremarka ble. IMPRESSION: No acute intracranial abnormality identified. Old infarcts in high left frontal and parietal lobes.
--- NOTE | 2024-12-30 22:42 | RADIOLOGY REPORT ---
CHEST RADIOGRAPH Indication: cough Technique: Single frontal view of the chest was obtained COMPARISON: DI CHEST,SINGLE VIEW on DOS: 07/02/23 FINDINGS: Lines and Tubes: None Lungs: Clear Pleura: No effusion. No pneumothorax. Cardiomediastinal contours: Unremarkable IMPRESSION: No abnormality demonstrated. No appreciable change compared to the prior chest x-ray from June 24.
[2024-12-30 23:42] LABS: BILIRUBIN,URINE NEGATIVE (Neg); CLARITY,URINE CLEAR (Clear); COLOR,URINE YELLOW (Yellow); GLUCOSE, URINE NEGATIVE (Neg); KETONES,URINE NEGATIVE (Neg); LEUKOCYTE ESTERASE ,URINE NEGATIVE (Neg); NITRITES, URINE NEGATIVE (Neg); OCCULT BLOOD,URINE TRACE-INTACT (Neg); PROTEIN,URINE NEGATIVE (Neg)
[2024-12-30 23:42] LABS: BASOPHILS # (AUTO) 0.1 X10'3 (0-0.2); BASOPHILS % (AUTO) 0.8 % (0-1); EOSINOPHILS # (AUTO) 0.3 X10'3 (0-0.9); EOSINOPHILS % (AUTO) 3.9 % (0-6); HEMATOCRIT 40.6 % (42.0-52.0); HEMOGLOBIN 13.9 g/dl (14.0-17.9); LYMPHOCYTES # (AUTO) 2.3 X10'3 (1.1-4.8); MEAN CORPUSCULAR HEMOGLOBIN 30.4 PG (27.0-31.0); MEAN CORPUSCULAR HGB CONC 34.2 g/dL (33.0-36.5); MONOCYTES # (AUTO) 0.9 X10'3 (0-0.9); NEUTROPHILS # (AUTO) 5.2 X10'3 (1.8-7.7); NEUTROPHILS % (AUTO) 59.3 % (42-75); PLATELET COUNT 192 X10'3 (140-440); RED BLOOD COUNT 4.57 X10'6 (4.70-6.10); RED CELL DISTRIBUTION WIDTH 13.2 % (11.5-14.5); WHITE BLOOD COUNT 8.8 X10'3 (4.5-11.0)
[2024-12-30 23:53] LABS: UA COLLECTION TYPE CLN CATCH MIDSTREAM
[2024-12-30 23:58] LABS: BACTERIA,URINE NONE SEEN /HPF (Neg); MUCUS STRANDS NONE SEEN /LPF (Neg); RBC,URINE 0-2 /HPF (0-2); SQUAMOUS EPITHELIAL CELL,UR FEW /LPF (FEW); WBC,URINE NONE SEEN /HPF (0-4)
[2024-12-31 00:31] VITALS: BP 176/57; PULSE 84; RESP 16; TEMP 98.7; O2SAT 100
== END 2024-12-31 00:55 | disposition home or self-care (01) ==
LOC: ER 21:24
DX: R42 Dizziness and giddiness (principal); Z04.1 Encounter for examination and observation following transport accident; S09.90XA Unspecified injury of head, initial encounter; I10 Essential (primary) hypertension; J44.9 Chronic obstructive pulmonary disease, unspecified; Z86.73 Personal history of transient ischemic attack (TIA), and cerebral infarction without residual deficits; Z88.0 Allergy status to penicillin; Z88.1 Allergy status to other antibiotic agents; Z88.6 Allergy status to analgesic agent; Z89.511 Acquired absence of right leg below knee; W06.XXXA Fall from bed, initial encounter; Y93.89 Activity, other specified; Y92.89 Other specified places as the place of occurrence of the external cause; Y99.8 Other external cause status
CPT/HCPCS: 36415; 70450; 71045; 80048; 81001; 83735; 84484; 85025; 93005; 99285

== ENCOUNTER 2025-03-30 09:42 | Emergency (ER) | payer MEDICARE, MEDICAID ==
[~2025-03-30] VITALS: Ht 167.6 cm; Wt 72.7 kg
[2025-03-30 09:54] VITALS: TEMP 97.9
--- NOTE | 2025-03-30 10:35 | RADIOLOGY REPORT ---
[facility] EXAMINATION: DI UNI RIBS WITH PA CHEST INDICATION: TRAUMA WITH RIGHT SIDED RIB PAIN COMPARISON: DI CHEST,SINGLE VIEW on DOS: 12/30/24, DI CHEST,SINGLE VIEW on DOS: 07/02/23 TECHNIQUE: Frontal view of the chest and 3 views of the right ribs history FINDINGS/IMPRESSION: No focal consolidation, pleural effusion or significant pneumothorax. Normal cardiomediastinal silhou ette. Suggestion of a nondisplaced right 9th rib fracture. Correlate with point tenderness. Atherosclerot ic vascular calcifications of the thoracic aorta are noted.
--- NOTE | 2025-03-30 11:12 | Physician Documentation ---
History of Present Illness ~ Chief Complaint: Rib pain Stated Complaint: CHEST WALL PAIN Time Seen by MD: 12:08 Primary Medical Doctor: [facility] This is an 80-year-old male who presents via EMS for hypertension and right chest wall pain sustained after a fall two days prior. Patient reports that he is being seen by home health care who called EMS due to his high blood pressure. Tetanus within 5 Years?: Yes Allergies: Coded Allergies: No Known Allergies (Unverified , 12/30/24) Active Prescriptions See Medication Reconciliation Form. Medication Reconciliation Scheduled Amlodipine Besylate (Amlodipine Besylate), 1 TAB PO DAILY, (Reported) Amox Tr/Potassium Clavulanate 875/125 MG (Augmentin 875/125 MG), 1 TAB PO BID Aspirin (Ecotrin*), 1 TAB PO DAILY Atorvastatin Calcium (Atorvastatin Calcium), 1 TAB PO DAILY, (Reported) Clopidogrel Bisulfate (Clopidogrel), 1 TAB PO DAILY, (Reported) Scheduled PRN Hydrocodone Bit/Acetaminophen 5/325 MG ([place] 5/325 MG), 1 TAB PO Q6H PRN for pain Olanzapine (Olanzapine), 1 TAB PO HS PRN for anxiety, (Reported) Past Medical History Past Medical History: CVA/TIA/Stroke, Hypertension, COPD, Hepatitis C, Anxiety Past Surgical History: orthopedic surgeries, other Other Past Surgical History: Right BKA Patient History: Patient reports no known family medical history. Alcohol Use: Occasionally Drug Use: methamphetamine, heroin Lives In: Home Occupation: retired Review of Systems ROS As stated above in the HPI, otherwise all systems are reviewed and negative. Physical Exam Vital Signs: Temperature: 97.9, Heart Rate: 77, Respiratory Rate: 18, BP: 165/96, Pulse Oximetry: 96, Weight: 72.730 Oxygen Flow Rate: 0 Physical Exam VITALS: Reviewed and as above. GENERAL: Alert, nontoxic appearing, no apparent distress. RESPIRATORY: No increased work of breathing, no respiratory distress, speaking in full clear sentences, clear lung sounds in all dixon CHEST: Right-sided chest tenderness without paradoxical movement, crepitus, deformity, ecchymosis, or erythema CV: Regular rate and rhythm no murmur Progress Results/Orders Results/Orders Completed Orders - TOBI ORTEGA INSOLE LIP TURNER Hydrocodone/Apap 5/325mg Tab ([place] 5/32 (03/30/25 12:20) Vital Signs 03/30/25 03/30/25 03/30/25 09:54 12:02 12:39 Temp 97.9 Pulse 77 81 Resp 18 18 18 B/P (MAP) 165/96 165/136 (146) Pulse Ox 96 97 O2 Flow Rate 0 0 EKG/XRAY/CT/US/VASC/MRI Chest X-Ray : Additional Comments Exam: UNI RIBS WITH PA CHEST [facility] EXAMINATION: DI UNI RIBS WITH PA CHEST INDICATION: TRAUMA WITH RIGHT SIDED RIB PAIN COMPARISON: DI CHEST,SINGLE VIEW on DOS: 12/30/24, DI CHEST,SINGLE VIEW on DOS: 07/02/23 TECHNIQUE: Frontal view of the chest and 3 views of the right ribs history FINDINGS/IMPRESSION: No focal consolidation, pleural effusion or significant pneumothorax. Normal cardiomediastinal silhouette. Suggestion of a nondisplaced right 9th rib fracture. Correlate with point tenderness. Atherosclerotic vascular calcifications of the thoracic aorta are noted. Electronically Signed by:STACY RUCKER MD Date & Time: 03/30/251032 Dictated by: STACY RUCKER MD Dictation date and time: 03/30/251032 I have reviewed and agree with the radiology report. I have reviewed and interpreted the imaging as: No focal consolidation or pneumothorax Medical Decision Making Findings This is an 80-year-old male who presented via EMS for hypertension and right chest wall pain sustained after a fall two days prior. Patient reported other than rib pain and felt fine and physical exam was benign other than finding of tenderness to chest wall, though it was reassuring there was no paradoxical movement, ecchymosis, crepitus, or deformity of the area. Chest x-ray demonstrated evidence of a nondisplaced rib fracture which was supported by tenderness on physical exam. I suspect patient has elevated blood pressure is related to pain, elevated blood pressure is not to level to warrant hypertensive emergency especially as patient reports feeling otherwise well. Patient's vital signs were stable in the emergency department and he is appropriate for outpatient follow up. Patient provided pain medication in the department and discharged on a short course of [place] for rib fracture pain. Patient provided home care instructions, follow up instructions, and return to care precautions which she verbalized understanding of. I have discussed with the patient the risks of addiction and overdose associated with use of opioids, including the increased risk of addiction to an opioid for an individual who is suffering from both mental and substance abuse disorders. I have discussed with the patient the danger of taking an opioid with a benzodiazepine, alcohol, or another central nervous system depressant. Differential Dx:Considerations: Include: Chest wall contusion, Flail chest, Myocardial contusion, Pneumothorax, Pulmonary contusion, Rib fracture, Tension pneumothorax, Other (Hypertensive emergency) Departure Time of Disposition: 12:21 Disposition: 01 HOME / SELF CARE / HOMELESS Impression: Primary Impression: Fracture of rib Qualified Codes: S22.31XA - Fracture of one rib, right side, initial encounter for closed fracture Condition: Improved Discharge Instructions: Rib Fracture Additional Instructions: Your x-ray shows that you may have broken a rib which based on the pain to the area I suspect you have, please use the prescribed [place] (see directions below) for pain, as we discussed you need to do deep breathing and coughing exercises to help prevent from getting pneumonia. Your blood pressure was elevated today I recommend discussing getting on blood pressure medications with your primary care provider. Please follow up with your primary care provider in the next few days. Please return to the emergency department for any new or worsening concerning symptoms including but not limited to difficulty breathing or if you develop a fever over 100.4 that does not lower with ibuprofen or Tylenol. You may use sffl-gcy-oxvmubo ibuprofen and or Tylenol as needed for pain as directed by the rmqc-jyt-rtuyrav packaging. For breakthrough pain you may use the prescribed [place], be aware that the [place] also contains the same active ingredient as Tylenol, so do not take more than the recommended amount of Tyleno l as directed on the mesk-tvo-xbsfqer packaging. You have been prescribed an opioid medication, there are risks of addiction and overdose associated with the use of opioids. The risk of addiction to an opioid for increases for those suffering both from mental health and substance use disorders. The use of an opioid while taking other central nervous system depressants including but not limited to benzodiazepines or alcohol, or other opioids increases the risk of serious side effects that can include overdose or respiratory depression that can lead to serious injury or . Referrals: NO PRIMARY CARE PROVIDER (PCP) Prescriptions Hydrocodone Bit/Acetaminophen 5/325 MG ([place] 5/325 MG) 5 Mg/325 Mg Tablet 1 TAB PO Q6H PRN for pain, #12 TAB Prov: TOBI ORTEGA 03/30/25 Education Educated: Patient Educated regarding: diagnosis, treatment, prognosis, need for follow up Signature Scribe Signature: No scribe Attestation: The note accurately reflects work and decisions made by me.OFELIA Payton 04/01/25 17:02 TOBI ORTEGA Mar 30, 2025 11:12
[2025-03-30 12:02] VITALS: BP 165/136; PULSE 81; O2SAT 97
[2025-03-30] MEDS ORDERED: HYDR-3965 PO (12:23)
[2025-03-30 12:39] VITALS: RESP 18
[2025-03-30] MEDS: HYDROcodone/acetaminophen 5mg/325mg tablet PO ONE (12:39)
== END 2025-03-30 12:46 | disposition home or self-care (01) ==
LOC: ER 09:42
DX: S22.31XA Fracture of one rib, right side, initial encounter for closed fracture (principal); I10 Essential (primary) hypertension; J44.9 Chronic obstructive pulmonary disease, unspecified; F15.90 Other stimulant use, unspecified, uncomplicated; F11.90 Opioid use, unspecified, uncomplicated; Z86.73 Personal history of transient ischemic attack (TIA), and cerebral infarction without residual deficits; Z89.511 Acquired absence of right leg below knee; W19.XXXA Unspecified fall, initial encounter; Y93.89 Activity, other specified; Y92.89 Other specified places as the place of occurrence of the external cause; Y99.8 Other external cause status
CPT/HCPCS: 71101; 99284